=== PATIENT | female | born 1945 | race Caucasian/White ===

== ENCOUNTER → 2017-04-25 | Outpatient (CLI) | payer MEDICARE, BC, OTHER ==
[~2017-04-25] MED LIST: IOHEXOL 240 MG/ML 50ML VIAL. ONE; IOHEXOL 300 MG/ML 75 ML VIAL. IV ONE; LOSA1TAB25 PO; MELO7.5T29 PO
[2017-04-25 15:01] LABS: CREATININE 1.1 mg/dL (0.6-1.0); GFR 48.8
--- NOTE | 2017-04-25 16:14 | RAD ---
EXAM: CT abdomen/pelvis with contrast. HISTORY: Malignant neoplasm of endometrium/vagina. Abnormality on rectal exam. TECHNIQUE: Computed tomography of the abdomen and pelvis was performed after the intravenous administration of 75 mL Omnipaque 300. COMPARISON: 09/13/2014.. FINDINGS: Lung windows through the visualized portions of the bases reveal mild atelectasis. Bone windows reveal no suspicious lesions. There are bilateral total hip arthroplasties. These result in streak artifact that obscures the pelvis. There is a low-density mass along the right aspect of the cul-de-sac that measures 3.1 x 3.0 cm, are seen obscured by artifact. This appears to be stable chronically. There is mild stranding in the presacral space which may indicate edema or post treatment change. The uterus and ovaries are surgically absent. There is an anastomotic suture line along the rectosigmoid junction. There is no gross ascites. There are no pathologically enlarged lymph nodes. A small hernia to the right of the umbilicus contains a nonobstructed loop of small bowel. A small hypoattenuating focus within hepatic segment 2 is unchanged chronically and likely benign cyst or hemangioma. The spleen, gallbladder, kidneys, pancreas and adrenal glands are unremarkable. IMPRESSION: 1. A 3 cm low-density mass along the right aspect of the cul-de-sac may represent the right ovary possibly a seroma. It appears to been stable chronically and benignity is favored. However, perirectal stranding is new suggesting inflammation. Visualization is limited given metallic artifact from the patient's hip arthroplasties. Sonography could further assess for masses and there is persistent concern. 2. A small right periumbilical hernia contains a nonobstructed loop of small bowel. *One or more of the following individualized dose reduction techniques were utilized for this examination: 1. Automated exposure control. 2. Adjustment of the mA and/or kV according to patient size. 3. Use of iterative reconstruction technique.
== END | disposition home or self-care (01) ==
LOC: CT 14:31
PROVIDERS: ATTEND Obstetrics & Gynecology Gynecologic Oncology
DX: C52 Malignant neoplasm of vagina (principal); C54.1 Malignant neoplasm of endometrium; C54.9 Malignant neoplasm of corpus uteri, unspecified; J98.11 Atelectasis; K42.9 Umbilical hernia without obstruction or gangrene; Z90.710 Acquired absence of both cervix and uterus
CPT/HCPCS: 36415; 74177; 82565; Q9966; Q9967

== ENCOUNTER → 2019-08-07 | Outpatient (CLI) | payer MEDICARE, BC, OTHER ==
[2019-08-07 11:52] LABS: BASO % 1 % (0-3); EOS # 0.1 x10^3/uL (0.0-0.7); EOS % 2 % (0-3); HEMATOCRIT 33.8 % (36.0-47.0); HEMOGLOBIN 11.3 g/dL (12.0-15.5); LYMPH # 0.7 x10^3/uL (1.0-4.8); LYMPH % 11 % (24-48); MEAN CORPUSCULAR HEMOGLOBIN 31 pg (25-35); MEAN CORPUSCULAR HGB CONC 33 g/dL (31-37); MEAN CORPUSCULAR VOLUME 94 fL (79-100); MONO # 0.6 x10^3/uL (0.0-1.1); MONO % 9 % (0-9); NEUT # 4.9 x10^3uL (1.8-7.7); NEUT % 78 % (31-73); PLATELET COUNT 309 x10^3/uL (140-400); RED BLOOD COUNT 3.62 x10^6/uL (3.50-5.40); RED CELL DISTRIBUTION WIDTH 14.3 % (11.5-14.5); WHITE BLOOD COUNT 6.3 x10^3/uL (4.0-11.0)
[2019-08-07 12:00] LABS: ALBUMIN/GLOBULIN RATIO 0.7 (1.0-1.7); CALCIUM 8.9 mg/dL (8.5-10.1); CREATININE 1.5 mg/dL (0.6-1.0); GFR 33.9; POTASSIUM 3.9 mmol/L (3.5-5.1); TOTAL BILIRUBIN 0.5 mg/dL (0.2-1.0); TOTAL PROTEIN 7.4 g/dL (6.4-8.2)
[2019-08-07 13:08] LABS: SEDIMENTATION RATE 88 (0-25)
--- NOTE | 2019-08-07 13:35 | RAD ---
CT Abdomen and Pelvis without contrast History: Abdominal pain Technique: Noncontrast CT imaging was performed of the abdomen and pelvis. Oral contrast was given. Multiplanar images are reviewed. Exposure: One or more of the following individualized dose reduction techniques were utilized for this examination: 1. Automated exposure control 2. Adjustment of the mA and/or kV according to patient size 3. Use of iterative reconstruction technique. Comparison: April 25, 2017 Findings: There is now moderate to severe right hydronephrosis and moderate right hydroureter, hydroureter extending into the pelvis although the region of ureterovesical junctions is completely obscured from artifact created by bilateral hip arthroplasties. There are some foci of dependent hyperdensity in the dilated right renal calyces, probably more defined calculus inferiorly about 1.1 cm. There is no left hydronephrosis or renal calculus. Gallbladder is present without obvious intraluminal abnormality by CT. Accurate evaluation of the abdominal visceral organs is limited without intravenous contrast. Small hypodense lesion of the lateral left lobe of the liver about 0.7 cm is similar, otherwise difficult characterize given small size. There is no adrenal nodularity. There is no new obvious abnormality of the partially fat replaced pancreas or of the spleen. There is no abnormality of the limited visualized lung bases. There is no free fluid or free air. There is no evidence of small bowel obstruction as oral contrast is seen to the level of the sigmoid colon. Appendix is not clearly identified if still present. There is no significant bowel dilatation. There is multilevel advanced thoracolumbar degenerative disc disease also multilevel facet degenerative change and spondylosis. There is degree of lateral recess stenosis bilaterally at L2-3. There is multilevel thoracolumbar neural foramina compromise. Impression: 1. There is moderate to severe right hydronephrosis and moderate right hydroureter. Region of the ureterovesical junctions is completely obscured by artifact created by bilateral hip arthroplasties, cannot evaluate for etiology of obstruction. There is some dependent hyperdensity in the right renal calyces which could be a component of a small stones or milk of calcium, likely more defined right renal calculus inferiorly. 2. There is no evidence of small bowel obstruction as there is oral contrast to the level of the sigmoid colon. 3. There is multilevel thoracolumbar degenerative disc disease, spondylosis, facet degenerative change, and neural foramina compromise. Electronically signed by: Pardeep Alexis MD (08/07/2019 1:32 PM) [id number]
== END | disposition home or self-care (01) ==
LOC: CT 10:43
PROVIDERS: ATTEND Physician Assistant Medical
DX: N13.30 Unspecified hydronephrosis (principal); K76.9 Liver disease, unspecified; M51.34 Other intervertebral disc degeneration, thoracic region; M47.814 Spondylosis without myelopathy or radiculopathy, thoracic region; M48.061 Spinal stenosis, lumbar region without neurogenic claudication; I10 Essential (primary) hypertension
CPT/HCPCS: 36415; 74176; 80053; 85025; 85651

== ENCOUNTER → 2019-11-17 | Outpatient (CLI) | payer MEDICARE, BC, OTHER ==
[~2019-11-17] MED LIST changes: +IOHEXOL 240 MG/ML 50ML VIAL. PO ONE
[2019-11-17 08:39] LABS: CREATININE 1.6 mg/dL (0.6-1.0); GFR 31.4
--- NOTE | 2019-11-17 11:24 | RAD ---
CT ABD PELV W/ORAL IV CONTRAST Indication: Abnormal colonoscopy at the rectum. Diarrhea. History of hysterectomy, appendectomy and prior temporary colostomy. Exposure: One or more of the following individualized dose reduction techniques were utilized for this examination: 1. Automated exposure control 2. Adjustment of the mA and/or kV according to patient size 3. Use of iterative reconstruction technique. Technique: Intravenous contrast was given. Oral contrast was given. Comparison: 08/07/2019. FINDINGS: Lung bases are clear. Heart size remains mildly enlarged. Small hypodense lesion in the left lobe of the liver measures 1 cm, better defined on today's exam due to contrast technique but appears stable since even earlier study of 04/25/2017. Spleen is not enlarged. Pancreas appears unremarkable. No evidence of adrenal mass. Moderate to severe right hydronephrosis is again seen, the right ureter is also dilated to the pelvis although the distal ureters are obscured by artifact from hip replacements. Cannot exclude distal right ureteric calculus. No evidence of left hydronephrosis. Slightly delayed enhancement of the right kidney as compared with the left. Dependent hyperdensity in right renal calyces are again identified and possible right renal calculus. No calcified gallstone. The aorta is mildly calcified and is tortuous. No evidence of pathologic lymph node enlargement. Stomach is not distended. No evidence of bowel obstruction, oral contrast reaches the proximal colon. Mild colonic diverticulosis. No evidence of acute colitis or diverticulitis. Homogeneous density within the rectum, could be due to a rectal mass or circumferential wall thickening, appears similar to the prior study although evaluation is limited due to artifact from the hip replacement. Mild stranding within the perirectal fat, also similar to the prior study. There is anastomotic suture in the rectosigmoid region. No evidence of pneumoperitoneum. No significant ascites. Urinary bladder is not well seen. Vertebral body height is maintained. Severe multilevel degenerative spondylosis with stenosis. IMPRESSION: 1. Image degradation of the pelvis due to artifact from hip replacements. 2. Homogeneous rectal density may be due to wall thickening, or rectal mass. Note the appearance is roughly similar to the prior scan from August 07, 2019, given constraints of the exam. 3. Moderate to severe right hydronephroureter is again seen, with slightly delayed right renal enhancement. Findings suggest distal obstruction although the distal ureter cannot be evaluated due to artifact from hip replacements. Electronically signed by: Monroe Taveras MD (11/17/2019 11:20 AM) [id number]
== END | disposition home or self-care (01) ==
LOC: CT 08:08
PROVIDERS: ATTEND Internal Medicine Gastroenterology
DX: K57.30 Diverticulosis of large intestine without perforation or abscess without bleeding (principal); N13.30 Unspecified hydronephrosis; I51.7 Cardiomegaly; K76.9 Liver disease, unspecified; M47.819 Spondylosis without myelopathy or radiculopathy, site unspecified; I70.0 Atherosclerosis of aorta; Q25.46 Tortuous aortic arch
CPT/HCPCS: 36415; 74177; 82565; 84520; Q9966; Q9967

== ENCOUNTER 2019-12-02 15:28 | Emergency (ER) | payer MEDICARE, BC, OTHER ==
[~2019-12-02] VITALS: Ht 172.7 cm; Wt 91.1 kg
[~2019-12-02 15:28] MED LIST changes: -IOHEXOL 240 MG/ML 50ML VIAL. ONE; -IOHEXOL 240 MG/ML 50ML VIAL. PO ONE; -IOHEXOL 300 MG/ML 75 ML VIAL. IV ONE
[2019-12-02 15:45] VITALS: BP 127/54
[2019-12-02] MEDS ORDERED: IV NORMAL SALINE 1,000ML 1,000 ML IV ONE (16:15)
--- NOTE | 2019-12-02 16:28 | RAD ---
PORTABLE CHEST 1V Clinical History: Syncope Technique: AP view of the chest was obtained at 12/02/2019 4:05 PM. Comparison: November 03, 2010. Findings: The cardiomediastinal silhouette is normal. The pulmonary vasculature is normal. The lungs and pleural margins are clear. There has been interval placement of a left Port-A-Cath and bilateral shoulder total arthroplasty. Impression: No evidence of an acute cardiopulmonary process. Electronically signed by: Magdaleno Mrash III, MD (12/02/2019 4:25 PM) [id number]
[2019-12-02 16:29] LABS: CALCIUM 8.6 mg/dL (8.5-10.1); CREATININE 2.2 mg/dL (0.6-1.0); GFR 21.8; POTASSIUM 3.7 mmol/L (3.5-5.1)
[2019-12-02 16:31] LABS: BASO % 1 % (0-3); EOS # 0.2 x10^3/uL (0.0-0.7); EOS % 3 % (0-3); HEMATOCRIT 32.6 % (36.0-47.0); HEMOGLOBIN 10.7 g/dL (12.0-15.5); LYMPH # 0.5 x10^3/uL (1.0-4.8); LYMPH % 7 % (24-48); MEAN CORPUSCULAR HEMOGLOBIN 31 pg (25-35); MEAN CORPUSCULAR HGB CONC 33 g/dL (31-37); MEAN CORPUSCULAR VOLUME 94 fL (79-100); MONO # 0.8 x10^3/uL (0.0-1.1); MONO % 12 % (0-9); NEUT # 5.4 x10^3uL (1.8-7.7); NEUT % 79 % (31-73); PLATELET COUNT 227 x10^3/uL (140-400); RED BLOOD COUNT 3.48 x10^6/uL (3.50-5.40); RED CELL DISTRIBUTION WIDTH 14.8 % (11.5-14.5); WHITE BLOOD COUNT 6.9 x10^3/uL (4.0-11.0)
[2019-12-02 16:35] LABS: ALBUMIN 2.8 g/dL (3.4-5.0); ALBUMIN/GLOBULIN RATIO 0.7 (1.0-1.7); TOTAL BILIRUBIN 0.2 mg/dL (0.2-1.0); TOTAL PROTEIN 6.6 g/dL (6.4-8.2)
--- NOTE | 2019-12-02 16:45 | RAD ---
CT scan of the head without contrast 12/02/2019 Clinical History: Syncope, head injury. Right frontal hematoma. Technique: Unenhanced, contiguous, 5 mm axial sections were obtained through the head. One or more of the following individualized dose reduction techniques were utilized for this study: 1. Automated exposure control. 2. Adjustment of the mA and/or kV according to patient size. 3. Use of iterative reconstruction technique. Findings: There is generalized parenchymal atrophy. Areas of decreased attenuation are seen within the periventricular and subcortical white matter of both cerebral hemispheres consistent with areas of small vessel ischemic disease. No acute parenchymal abnormality is seen. No extra-axial fluid collection is noted. No skull fracture is seen. Soft tissue swelling seen involving the right frontal scalp. Impression: No acute intracranial abnormality is seen. Electronically signed by: Jarad Thackre MD (12/02/2019 4:43 PM) [id number]
--- NOTE | 2019-12-02 17:08 | PHYS DOC ---
Past History Past Medical History: Anxiety, Arthritis, Cancer, Depression, Hypertension Past Surgical History: Appendectomy, Colectomy, Hip Replacement Alcohol Use: None Adult General Chief Complaint Chief Complaint: SYNCOPE HPI HPI Patient is a 74 female year old sex who presents to the emergency department for evaluation of possible syncope. The patient states that she had an episode while using the toilet. She states that she had a large watery bowel movement. She started to feel lightheaded which resulted in her passing out. She states that she fell forward off the toilet and hit her head on the wall. States that this time she feels better. Notes that this took place proximately 2 hours prior to arrival. She states that her urged her to come and be checked out in the emergency department. She states that this time she is not experienc ing any dizziness or lightheadedness. She does note that she has had history of ongoing diarrhea issues since having a colonoscopy performed by her senior budget analyst within the past 3 weeks. Notes his stools have been watery. Has not been having any fevers or abdominal pain associated with symptoms. Does note that she has been trying to drink fluids to stay hydrated. She denied any associated chest pain or shortness of breath with this episode. Review of Systems Review of Systems Constitutional: Denies fever or chills [] Eyes: Denies change in visual acuity, redness, or eye pain [] HENT: Denies nasal congestion or sore throat [] Respiratory: Denies cough or shortness of breath [] Cardiovascular: Syncope, denies chest pain or edema [] GI: Diarrhea, denies abdominal pain, nausea, vomiting [] : Denies dysuria or hematuria [] Musculoskeletal: Denies back pain or joint pain [] Integument: Denies rash or skin lesions [] Neurologic: Denies headache, focal weakness or sensory changes [] All other systems were reviewed and found to be within normal limits, except as documented in this note. Current Medications Current Medications Current Medications Medications (Trade) Dose Ordered Sig/Drea Start Time Stop Time Status Last Admin Dose Admin Sodium Chloride 1,000 ml @ 1,000 mls/hr 1X ONCE 12/02/19 16:15 12/02/19 17:14 12/02/19 16:21 1,000 MLS/HR Allergies Allergies Allergies Coded Allergies Type Severity Reaction Last Updated Verified No Known Drug Allergies 09/13/14 No Physical Exam Physical Exam Constitutional: Well developed, well nourished, no acute distress, non-toxic appearance. [] HENT: Normocephalic, 3.5 cm right frontal scalp hematoma, bilateral external ears normal, oropharynx moist, no oral exudates, nose normal. [] Eyes: PERRLA, EOMI, conjunctiva normal, no discharge. [] Neck: Normal range of motion, no tenderness, supple, no stridor. [] Cardiovascular:Heart rate regular rhythm, no murmur [] Lungs & Thorax: Bilateral breath sounds clear to auscultation [] Abdomen: Bowel sounds normal, soft, no tenderness, no masses, no pulsatile masses. [] Skin: Warm, dry, no erythema, no rash. [] Back: No tenderness, no CVA tenderness. [] Extremities: No tenderness, no cyanosis, no clubbing, ROM intact, no edema. [] Neurologic: Alert and oriented X 3, normal motor function, normal sensory function, no focal deficits noted. [] Current Patient Data Vital Signs Vital Signs Date Time Temp Pulse Resp B/P (MAP) Pulse Ox O2 Delivery O2 Flow Rate FiO2 12/02/19 15:45 98.0 63 18 127/54 (78) 96 Room Air Lab Results Laboratory Tests Test 12/02/19 15:54 White Blood Count 6.9 x10^3/uL (4.0-11.0) Red Blood Count 3.48 x10^6/uL (3.50-5.40) L Hemoglobin 10.7 g/dL (12.0-15.5) L Hematocrit 32.6 % (36.0-47.0) L Mean Corpuscular Volume 94 fL (79-100) Mean Corpuscular Hemoglobin 31 pg (25-35) Mean Corpuscular Hemoglobin Concent 33 g/dL (31-37) Red Cell Distribution Width 14.8 % (11.5-14.5) H Platelet Count 227 x10^3/uL (140-400) Neutrophils (%) (Auto) 79 % (31-73) H Lymphocytes (%) (Auto) 7 % (24-48) L Monocytes (%) (Auto) 12 % (0-9) H Eosinophils (%) (Auto) 3 % (0-3) Basophils (%) (Auto) 1 % (0-3) Neutrophils # (Auto) 5.4 x10^3uL (1.8-7.7) Lymphocytes # (Auto) 0.5 x10^3/uL (1.0-4.8) L Monocytes # (Auto) 0.8 x10^3/uL (0.0-1.1) Eosinophils # (Auto) 0.2 x10^3/uL (0.0-0.7) Basophils # (Auto) 0.0 x10^3/uL (0.0-0.2) Sodium Level 139 mmol/L (136-145) Potassium Level 3.7 mmol/L (3.5-5.1) Chloride Level 102 mmol/L (98-107) Carbon Dioxide Level 28 mmol/L (21-32) Anion Gap 9 (6-14) Blood Urea Nitrogen 36 mg/dL (7-20) H Creatinine 2.2 mg/dL (0.6-1.0) H Estimated GFR (Cockcroft-Gault) 21.8 BUN/Creatinine Ratio 16 (6-20) Glucose Level 107 mg/dL (70-99) H Calcium Level 8.6 mg/dL (8.5-10.1) Magnesium Level 2.0 mg/dL (1.8-2.4) Total Bilirubin 0.2 mg/dL (0.2-1.0) Aspartate Amino Transferase (AST) 16 U/L (15-37) Alanine Aminotransferase (ALT) 14 U/L (14-59) Alkaline Phosphatase 72 U/L (46-116) Total Protein 6.6 g/dL (6.4-8.2) Albumin 2.8 g/dL (3.4-5.0) L Albumin/Globulin Ratio 0.7 (1.0-1.7) L EKG EKG Interpreted by me: Heart rate 66, sinus rhythm, normal intervals, normal axis, no acute ST/T wave abnormalities present [] Radiology/Procedures Radiology/Procedures [address] [address] IMAGING REPORT Signed PATIENT: CHELO MONSALVE RACCOUNT: [id number] : 1945 LOCATION: ER AGE: 74 SEX: F EXAM STATUS: REG ER ORD. PHYSICIAN: BABAK ORR MD REASON: Syncope PROCEDURE: PORTABLE CHEST 1V PORTABLE CHEST 1V Clinical History: Syncope Technique: AP view of the chest was obtained at 12/02/2019 4:05 PM. Comparison: November 03, 2010. Findings: The cardiomediastinal silhouette is normal. The pulmonary vasculature is normal. The lungs and pleural margins are clear. There has been interval placement of a left Port-A-Cath and bilateral shoulder total arthroplasty. Impression: No evidence of an acute cardiopulmonary process. Electronically signed by: Jaguar Harp III, MD (12/02/2019 4:25 PM) [id number] DICTATED AND SIGNED BY: JAGUAR HARP III, MD DATE: 12/02/19 1623 CC: BABAK ORR MD; ARABELLA [place]ZO PA ~ [place] [address] IMAGING REPORT Signed PATIENT: CHELO MONSALVE RACCOUNT: [id number] : 1945 LOCATION: ER AGE: 74 SEX: F EXAM STATUS: REG ER ORD. PHYSICIAN: BABAK ORR MD REASON: syncope, head injury, right frontal hematoma PROCEDURE: CT HEAD WO CONTRAST CT scan of the head without contrast 12/02/2019 Clinical History: Syncope, head injury. Right frontal hematoma. Technique: Unenhanced, contiguous, 5 mm axial sections were obtained through the head. One or more of the following individualized dose reduction techniques were utilized for this study: 1. Automated exposure control. 2. Adjustment of the mA and/or kV according to patient size. 3. Use of iterative reconstruction technique. Findings: There is generalized parenchymal atrophy. Areas of decreased attenuation are seen within the periventricular and subcortical white matter of both cerebral hemispheres consistent with areas of small vessel ischemic disease. No acute parenchymal abnormality is seen. No extra-axial fluid collection is noted. No skull fracture is seen. Soft tissue swelling seen involving the right frontal scalp. Impression: No acute intracranial abnormality is seen. Electronically signed by: aJrad Thacker MD (12/02/2019 4:43 PM) [id number] DICTATED AND SIGNED BY: JARAD THACKER MD DATE: 12/02/19 1643 CC: BABAK ORR MD; ARABELLA RAZO ~ [] Course & Med Decision Making Course & Med Decision Making Pertinent Labs and Imaging studies reviewed. (See chart for details) The patient appears well at this time. The patient was started on IV fluids. Given that symptoms came on after bearing down to have a large bowel movement, I do suspect that the syncopal episode was due to a vasovagal episode. Patient's blood work did show elevation in BUN and creatinine compared to baseline. After IV fluids were given, the patient states that she is feeling well and would like to go home. I advised that the patient follow-up with her primary doctor in the next 3 days and recommended that she have a repeat basic metabolic panel redrawn to recheck her BUN and creatinine. Advised to continue oral hydration at home. Recommended return to the emergency department for any wors ening symptoms. Patient voiced understanding and agreement with treatment plan. [] Dragon Disclaimer Dragon Disclaimer This electronic medical record was generated, in whole or in part, using a voice recognition dictation system. Departure Departure: Impression: Primary Impression: Vasovagal episode Additional Impressions: Dehydration Hematoma of frontal scalp Closed head injury Disposition: HOME, SELF-CARE Condition: STABLE Referrals: ARABELLA RAZO (PCP) Patient Instructions: Dehydration, Adult, Scalp Hematoma, Syncope Additional Instructions: Your blood work showed abnormalities in regards to your kidney function. Your BUN and creatinine levels were found to be elevated. It is recommended that you notify your primary care provider of this as you will need to have a repeat basic metabolic panel to recheck your BUN and creatinine levels. Follow-up with your primary care provider in 3 days for reevaluation. Return to the emergency department for any worsening symptoms. Problem Qualifiers Additional Impressions: Hematoma of frontal scalp Encounter type: initial encounter Qualified Codes: S00.03XA - Contusion of scalp, initial encounter Closed head injury Encounter type: initial encounter Qualified Codes: S09.90XA - Unspecified injury of head, initial encounter BABAK ORR MD December 02, 2019 17:08
--- NOTE | 2019-12-02 17:25 | EKG ---
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
== END 2019-12-02 17:25 | disposition home or self-care (01) ==
LOC: ER 15:28
DX: S00.03XA Contusion of scalp, initial encounter (principal); R42 Dizziness and giddiness; R19.7 Diarrhea, unspecified; R55 Syncope and collapse; E86.0 Dehydration; F41.9 Anxiety disorder, unspecified; M19.90 Unspecified osteoarthritis, unspecified site; F32.9 Major depressive disorder, single episode, unspecified; I10 Essential (primary) hypertension; Z90.89 Acquired absence of other organs; Z98.890 Other specified postprocedural states; Z85.9 Personal history of malignant neoplasm, unspecified; W18.09XA Striking against other object with subsequent fall, initial encounter; Y93.89 Activity, other specified; Y92.89 Other specified places as the place of occurrence of the external cause; Y99.8 Other external cause status
CPT/HCPCS: 36415; 70450; 71045; 80053; 83735; 85025; 93005; 96360; 99285; J7030

== ENCOUNTER 2020-07-08 13:27 | Emergency (ER) | payer MEDICARE, BC, OTHER ==
[~2020-07-08] VITALS: Ht 152.4 cm; Wt 90.9 kg
[2020-07-08] MEDS ORDERED: LIDOCAINE 1%/EPI 1:100,000 20 ML VIAL. IJ ONE (14:45)
[2020-07-08 15:20] VITALS: BP 116/90
--- NOTE | 2020-07-08 17:20 | PHYS DOC ---
Past History Past Medical History: Arthritis, Depression, Hypertension Past Surgical History: Hip Replacement, Hysterectomy, Other Additional Past Surgical Histo: BILAT SHOULDER REPLACEMENTS, COLOSTOMY AND REVERSAL, NEPHROSTOMY TUBES Alcohol Use: None General Adult EDM: Chief Complaint: LACERATION/AVULSION HPI: HPI: Patient is a 75-year-old female who presents to the emergency department with complaints of a laceration to the lateral right lower extremity. Patient states she was up on a step stool when she slipped and fell and cut her leg in the process. She denies any head injury or loss of consciousness from the fall. Patient states she only fell down one step. She reports her last tetanus shot was less than 5 years ago. The patient denies any numbness, tingling, or weakness of the lower extremity. She denies any pain at this time. Review of Systems: Review of Systems: Complete ROS is negative unless otherwise noted in HPI. Current Medications: Current Meds: Current Medications Medications (Trade) Dose Ordered Sig/Drea Start Time Stop Time Status Last Admin Dose Admin Lidocaine/ Epinephrine (Xylocaine 1%-Epi 1:100,000) 20 ml 1X ONCE 07/08/20 14:45 07/08/20 14:46 DC 07/08/20 15:12 20 ML Allergies: Allergies: Allergies Coded Allergies Type Severity Reaction Last Updated Verified No Known Drug Allergies 09/13/14 No Physical Exam: PE: See Above Constitutional: Well developed, well nourished, no acute distress, non-toxic appearance. [] HENT: Normocephalic, atraumatic, bilateral external ears normal, nose normal. [] Eyes: PERRLA, EOMI, conjunctiva normal, no discharge. [] Neck: Normal range of motion, no stridor. [] Cardiovascular:Heart rate regular rhythm Lungs & Thorax: Respirations even and unlabored, no retractions, no respiratory distress Skin: Warm, dry, no erythema, no rash: 14 cm stellate/ flap laceration to the lateral right lower extremity no active bleeding. [] Extremities: RLE: No bony tenderness, no cyanosis, ROM intact, no edema. [] Neurologic: Alert and oriented X 3, no focal deficits noted. [] Psychologic: Affect normal, judgement normal, mood normal. [] Current Patient Data: Vital Signs: Vital Signs Date Time Temp Pulse Resp B/P (MAP) Pulse Ox O2 Delivery O2 Flow Rate FiO2 07/08/20 15:20 59 18 116/90 (99) 93 07/08/20 14:13 97.6 Room Air EKG: EKG: [] Radiology/Procedures: Radiology/Procedures: Laceration Repair by me: Anesthesia: 1% lidocaine with epinephrine locally Location: Right lateral lower leg Tendon/Joint/Nerves: No injury Foreign body: None detected after copious irrigation and exploration with NS and Evelyn-Hex Technique: 26 simple Interrupted Sutures with 4-0 Ethilon Complexity: No subcutaneous sutures/mucosal repair/edge excision Post Closure Length: 14 cm stellate shape Patient's bleeding was easily controlled in the department and there is no indication of anemia. No evidence of compartment syndrome, neurologic injury, vascular injury, open joint, tendon laceration, or foreign body. Patient is appropriate for outpatient follow up. 4 [] Heart Score: Risk Factors: Risk Factors: DM, Current or recent (<one month) smoker, HTN, HLP, family hist ory of CAD, obesity. Risk Scores: Score 0 - 3: 2.5% MACE over next 6 weeks - Discharge Home Score 4 - 6: 20.3% MACE over next 6 weeks - Admit for Clinical Observation Score 7 - 10: 72.7% MACE over next 6 weeks - Early Invasive Strategies Course & Med Decision Making: Course & Med Decision Making Pertinent Labs and Imaging studies reviewed. (See chart for details) [] Dragon Disclaimer: Dragon Disclaimer: This electronic medical record was generated, in whole or in part, using a voice recognition dictation system. Departure Departure: Impression: Primary Impression: Laceration of right lower leg without complication Qualified Codes: S81.811A - Laceration without foreign body, right lower leg, initial encounter Disposition: 01 DC HOME SELF CARE/HOMELESS Condition: STABLE Referrals: ARABELLA RAZO (PCP) Patient Instructions: Laceration Care, Adult, [id number] Additional Instructions: Keep the area clean and dry. You may take Tylenol or ibuprofen as needed for pa in. Keep the dressing that was placed today on for 24 hours then change the dressing twice a day and as needed. Follow-up with your primary care doctor, or return to the emergency room in 14 days to have the sutures removed, sooner if you develop signs of infection including: redness, warmth, drainage, or a fever. Thank you for choosing [facility] for your care today! NELL YOUNG APRN Jul 08, 2020 17:20
== END 2020-07-08 17:30 | disposition home or self-care (01) ==
LOC: ER 13:27
DX: S81.811A Laceration without foreign body, right lower leg, initial encounter (principal); M19.90 Unspecified osteoarthritis, unspecified site; I10 Essential (primary) hypertension; W01.198A Fall on same level from slipping, tripping and stumbling with subsequent striking against other object, initial encounter; Y93.89 Activity, other specified; Y92.89 Other specified places as the place of occurrence of the external cause; Y99.8 Other external cause status
CPT/HCPCS: 12005; 99282

== ENCOUNTER 2020-10-12 08:34 | Emergency (ER) | payer MEDICARE, BC, OTHER ==
[~2020-10-12] VITALS: Ht 152.4 cm; Wt 95.1 kg
[2020-10-12 08:42] VITALS: BP 127/71
--- NOTE | 2020-10-12 08:47 | PHYS DOC ---
Past History Past Medical History: Arthritis, Depression, Hypertension Past Surgical History: Hip Replacement, Hysterectomy, Other Additional Past Surgical Histo: BILAT SHOULDER REPLACEMENTS, COLOSTOMY AND REVERSAL, NEPHROSTOMY TUBES Alcohol Use: None General Adult EDM: Chief Complaint: ABDOMINAL PAIN HPI: HPI: Patient is a 75-year-old female brought in by EMS for low abdominal pain. States she was having pain since last night, has been constipated and took a laxative and had 2 large bowel movements. Patient states the pain is gone now she does not want to be evaluated and that she is here because of the insistence of her and son. Patient has a history of bilateral nephrostomy tubes placed at [facility]. She has had a small increase in the amount of blood output from the tubes. Review of Systems: Review of Systems: All other systems within normal limits except for as noted in the HPI Allergies: Allergies: Allergies Coded Allergies Type Severity Reaction Last Updated Verified No Known Drug Allergies 09/13/14 No Physical Exam: PE: Constitutional: Well developed, well nourished, no acute distress, non-toxic appearance. [] HENT: Normocephalic, atraumatic, bilateral external ears normal, nose normal. [] Eyes: PERRLA, conjunctiva normal, no discharge. [] Neck: No rigidity, supple, no stridor. [] Cardiovascular: Regular rate and rhythm, brisk cap refill [] Lungs & Thorax: Non labored symmetric respirations, no tachypnea or respiratory distress [] Abdomen: Soft, nondistended, tenderness and guarding in lower abdomen (patient states that her baseline). Skin: Warm, dry, no erythema, no rash. [] Back: Unremarkable, bilateral nephrostomy tubes Extremities: No deformities, range of motion grossly intact, no lower extremity edema [] Neurologic: Alert and oriented X 3, no focal deficits noted. [] Psychologic: Affect normal, judgement normal, mood normal. [] EKG: EKG: [] Radiology/Procedures: Radiology/Procedures: [] Heart Score: C/O Chest Pain: N/A Risk Factors: Risk Factors: DM, Current or recent (<one month) smoker, HTN, HLP, family history of CAD, obesity. Risk Scores: Score 0 - 3: 2.5% MACE over next 6 weeks - Discharge Home Score 4 - 6: 20.3% MACE over next 6 weeks - Admit for Clinical Observation Score 7 - 10: 72.7% MACE over next 6 weeks - Early Invasive Strategies Course & Med Decision Making: Course & Med Decision Making Patient states she does not want evaluation or work-up. States she just had a CT scan 2 days ago at [facility]. Patient declining any work-up or evaluation, discussed checking vital signs and her elevated temperature but patient is refusing any further diagnostic evaluation. Signed AMA paperwork Dragon Disclaimer: Wilfredo Disclaimer: This electronic medical record was generated, in whole or in part, using a voice recognition dictation system. Departure Departure: Impression: Primary Impression: Left against medical advice Disposition: 07 AMA/ELOPED/LWBS Condition: GUARDED Referrals: ARABELLA RAZO (PCP) ARGELIA ANDERSON MD Oct 12, 2020 08:47
== END 2020-10-12 09:05 | disposition left against medical advice (07) ==
LOC: ER 08:34
DX: R10.30 Lower abdominal pain, unspecified (principal); K59.00 Constipation, unspecified; M19.90 Unspecified osteoarthritis, unspecified site; F32.9 Major depressive disorder, single episode, unspecified; I10 Essential (primary) hypertension; Z90.710 Acquired absence of both cervix and uterus; Z93.3 Colostomy status; Z93.6 Other artificial openings of urinary tract status
CPT/HCPCS: 99283

== ENCOUNTER → 2020-10-19 | Outpatient (CLI) | payer MEDICARE, BC, OTHER ==
[2020-10-12 08:42] VITALS: BP 127/71
[2020-10-19 11:53] LABS: CALCIUM 8.9 mg/dL (8.5-10.1); CREATININE 2.7 mg/dL (0.6-1.0); GFR 17.1; POTASSIUM 4.2 mmol/L (3.5-5.1)
== END ==
LOC: LAB 10:35
PROVIDERS: ATTEND Physician Assistant
DX: R79.89 Other specified abnormal findings of blood chemistry (principal); N28.9 Disorder of kidney and ureter, unspecified
CPT/HCPCS: 36415; 80048

== ENCOUNTER → 2020-12-02 | Outpatient (CLI) | payer MEDICARE, BC, OTHER ==
--- NOTE | 2020-12-02 15:33 | RAD ---
US DPLX VENOUS EXTREMITY UPPER RT History: Reason: ARM PAIN / Spl. Instructions: / History: Comparison: None. Procedure: Color flow Doppler, Doppler spectral analysis, and 2D images are obtained with and without compression in the jugular vein, subclavian vein, axillary vein, brachial vein, radial vein, ulnar v ein, and basilic and cephalic veins. Findings: There is normal color flow, augmentation, and compressibility of all visualized vein segments. No lima dence of deep venous thrombus is present. IMPRESSION: 1. No evidence of right upper extremity deep venous thrombosis. Electronically signed by: Robinson Carlos DO (12/02/2020 3:31 PM) [id number]
--- NOTE | 2020-12-02 15:42 | RAD ---
AP and lateral views the right forearm no comparison. INDICATION: Right arm pain. FINDINGS: No fracture subluxation dislocation. No significant soft tissue swelling. Electronically signed by: Stanley Ayoub MD (12/02/2020 3:40 PM) [id number]
== END ==
LOC: US 14:45
PROVIDERS: ATTEND Physician Assistant
DX: M79.601 Pain in right arm (principal)
CPT/HCPCS: 73090; 93971

== ENCOUNTER 2020-12-03 07:34 | Emergency (ER) | payer MEDICARE, BC, OTHER ==
[~2020-12-03] VITALS: Ht 152.4 cm; Wt 95.1 kg
[2020-12-03 08:03] VITALS: BP 120/78
--- NOTE | 2020-12-03 08:09 | RAD ---
CT head without contrast: Reason for examination: Head trauma. Comparison is made to previous study dated 12/02/2019. Helical images were obtained through the brain. No contrast was administered. Ventricular systems are symmetric and not abnormally dilated. No midline shift is seen. There is gene ralized parenchymal atrophy which is consistent with the patient's age. There is no evidence of intra cranial hemorrhage, acute infarct, mass or edema. There are some patchy deep white matter changes in the frontal and parietal lobes bilaterally consistent with microvascular ischemic changes which are s table. No abnormalities of seen at the orbits. The paranasal sinuses and mastoid air cells are clear. No acute abnormality seen in the skull. IMPRESSION: No acute intracranial abnormality evident. Cerebral atrophy with microvascular ischemic changes in the frontal and parietal lobes. CT cervical spine without contrast: Helical images were obtained through the cervical spine from the skull base through the thoracic apic es. No contrast was administered. Reconstruction was performed in sagittal and coronal planes. The C1 ring is intact. The odontoid process is intact and normally centered between the lateral amari s of C1. The vertebral bodies of the cervical spine show a 2 mm anterolisthesis of C3 on C4. Remainin g vertebral bodies are normally aligned anteriorly and posteriorly. No acute fracture is seen. [employer] ior elements are intact. There is severe degenerative disc disease at the C3-4, C5-6 and C6 disc leve ls. No site of significant spinal stenosis is evident. Prevertebral soft tissues are normal. IMPRESSION: Degenerative spondylosis with a 2 mm grade 1 anterolisthesis of C3 on C4 and severe degenerative disc disease at the C3-4, C5-6 and C6-7 levels. No significant spinal stenosis evident. Exposure: One or more of the following individualized dose reduction techniques were utilized for thi s examination: 1. Automated exposure control 2. Adjustment of the mA and/or kV according to patient size 3. Use of iterative reconstruction technique. Electronically signed by: Tracy Dennis MD (12/03/2020 8:07 AM) STEPHEN
--- NOTE | 2020-12-03 08:10 | PHYS DOC ---
Past History Past Medical History: Arthritis, Cancer, Depression, Hypertension Past Surgical History: Cancer Surgery, Hip Replacement, Hysterectomy, Other Additional Past Surgical Histo: BILAT SHOULDER REPLACEMENTS, COLOSTOMY AND REVERSAL, NEPHROSTOMY TUBES Alcohol Use: None General Adult EDM: Chief Complaint: MECHANICAL FALL HPI: HPI: Patient is a 75-year-old female brought in by EMS after a fall from standing. Patient got up to use the restroom. provided most of the history and states that she had called him and he saw her in the doorway moving back and forth that she then felt straight backwards and hit the back of her head on the bathroom floor. states she was out for 5 minutes and awoke when EMS arrived there. Denies any seizure-like activity. No vomiting. Patient takes a baby aspirin but no other blood thinners. Patient has multiple significant comorbidities. She states she gets around with a walker because she gets off balance and off her feet. Denies any diaphoresis, vision changes, chest pain, or tachycardia before she fell. Patient also is complaining of bilateral hand pain for approximately 5 days. Symptoms started on the right is moving up to her forearm. Has been seen by her primary care physician and had imaging done yesterday, had a negative venous ultrasound and negative x-rays of the forearms. Patient states the pain is sharp and comes every 7 to 11 minutes. Patient has a history of chronic pain and is taking gabapentin and hydrocodone without improvement. Review of Systems: Review of Systems: All other systems within normal limits except for as noted in the HPI Allergies: Allergies: Allergies Coded Allergies Type Severity Reaction Last Updated Verified No Known Drug Allergies 10/12/20 No Physical Exam: PE: Constitutional: Well developed, well nourished, moderate acute distress, non- toxic appearance. [] HENT: Normocephalic, occipital scalp hematoma, bilateral external ears normal, nose normal. [] Eyes: PERRLA, conjunctiva normal, no discharge. [] Neck: No rigidity, supple, no stridor. No C-spine tenderness [] Cardiovascular: Regular rate and rhythm, brisk cap refill, symmetrical pulses [] Lungs & Thorax: Non labored symmetric respirations, no tachypnea or respiratory distress [] Abdomen: Soft, nondistended. Skin: Warm, dry, no erythema, no rash. [] Back: Unremarkable Extremities: No deformities, range of motion grossly intact, no lower extremity edema. Bilateral hands deformity consistent with osteoarthritis [] Neurologic: Alert and oriented X 3, no focal deficits noted. No sensory defects on upper extremities [] Psychologic: Affect normal, judgement normal, mood normal. [] Current Patient Data: Vital Signs: Vital Signs Date Time Temp Pulse Resp B/P (MAP) Pulse Ox O2 Delivery O2 Flow Rate FiO2 12/03/20 08:03 98.4 78 20 120/78 (92) 90 Room Air EKG: EKG: Sinus rhythm with incomplete right bundle. Normal axis, no ST elevation or depression, no ectopy. [] Radiology/Procedures: Radiology/Procedures: EXAM: Bilateral upper extremity arterial Doppler sonogram. HISTORY: Arm pain. Peripheral vascular disease. TECHNIQUE: Griffiths scale and color Doppler sonographic evaluation of the bilateral upper extremity arteries with spectral waveform analysis was performed. FINDINGS: There are elevated peak systolic velocities throughout the majority of the bilateral upper extremity arteries, with exception of the bilateral distal ulnar arteries, distal left radial artery, proximal right subclavian artery and proximal right brachial artery. No arterial occlusion is seen. IMPRESSION: Elevated peak systolic velocities throughout the majority of the bilateral upper extremity arteries, suggesting a component of stenosis. No arterial occlusion is seen.[] CT head without contrast: Reason for examination: Head trauma. Comparison is made to previous study dated 12/02/2019. Helical images were obtained through the brain. No contrast was administered. Ventricular systems are symmetric and not abnormally dilated. No midline shift is seen. There is generalized parenchymal atrophy which is consistent with the patient's age. There is no evidence of intracranial hemorrhage, acute infarct, mass or edema. There are some patchy deep white matter changes in the frontal and parietal lobes bilaterally consistent with microvascular ischemic changes which are stable. No abnormalities of seen at the orbits. The paranasal sinuses and mastoid air cells are clear. No acute abnormality seen in the skull. IMPRESSION: No acute intracranial abnormality evident. Cerebral atrophy with microvascular ischemic changes in the frontal and parietal lobes. CT cervical spine without contrast: Helical images were obtained through the cervical spine from the skull base through the thoracic apices. No contrast was administered. Reconstruction was performed in sagittal and coronal planes. The C1 ring is intact. The odontoid process is intact and normally centered between the lateral masses of C1. The vertebral bodies of the cervical spine show a 2 mm anterolisthesis of C3 on C4. Remaining vertebral bodies are normally aligned anteriorly and posteriorly. No acute fracture is seen. Posterior elements are intact. There is severe degenerative disc disease at the C3-4, C5-6 and C6 disc levels. No site of significant spinal stenosis is evident. Prevertebral soft tissues are normal. IMPRESSION: Degenerative spondylosis with a 2 mm grade 1 anterolisthesis of C3 on C4 and severe degenerative disc disease at the C3-4, C5-6 and C6-7 levels. No significant spinal stenosis evident. Heart Score: C/O Chest Pain: No Risk Factors: Risk Factors: DM, Current or recent (<one month) smoker, HTN, HLP, family history of CAD, obesity. Risk Scores: Score 0 - 3: 2.5% MACE over next 6 weeks - Discharge Home Score 4 - 6: 20.3% MACE over next 6 weeks - Admit for Clinical Observation Score 7 - 10: 72.7% MACE over next 6 weeks - Early Invasive Strategies Course & Med Decision Making: Course & Med Decision Making Pertinent Labs and Imaging studies reviewed. (See chart for details) Discussed with Dr. Stone, would like to admit for observation at minimum for head injury with loss of consciousness for over 3 minutes. And observation since patient possibly syncopized. Show stenosis on her arterial study. We will transfer to [place] for MRI imaging, vascular consult, neurology consult. Patient's agreeable to plan. [] Dragon Disclaimer: Dragon Disclaimer: This electronic medical record was generated, in whole or in part, using a voice recognition dictation system. Departure Departure: Impression: Primary Impression: Pain in both upper extremities Additional Impression: Syncope and collapse Disposition: 02 SHORT TERM HOSPITAL Admitting Physician: Dylan Cervantes Condition: STABLE Referrals: ARABELLA RAZO (PCP) ARGELIA ANDERSON MD December 03, 2020 08:10
--- NOTE | 2020-12-03 08:16 | EKG ---
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
[2020-12-03 08:30] LABS: BASO % 0 % (0-3); EOS # 0.3 x10^3/uL (0.0-0.7); EOS % 3 % (0-3); HEMATOCRIT 31.8 % (36.0-47.0); HEMOGLOBIN 10.5 g/dL (12.0-15.5); LYMPH # 0.5 x10^3/uL (1.0-4.8); LYMPH % 5 % (24-48); MEAN CORPUSCULAR HEMOGLOBIN 32 pg (25-35); MEAN CORPUSCULAR HGB CONC 33 g/dL (31-37); MEAN CORPUSCULAR VOLUME 95 fL (79-100); MONO # 1.1 x10^3/uL (0.0-1.1); MONO % 12 % (0-9); NEUT # 7.4 x10^3uL (1.8-7.7); NEUT % 80 % (31-73); PLATELET COUNT 214 x10^3/uL (140-400); RED BLOOD COUNT 3.33 x10^6/uL (3.50-5.40); RED CELL DISTRIBUTION WIDTH 15.6 % (11.5-14.5); WHITE BLOOD COUNT 9.3 x10^3/uL (4.0-11.0)
[2020-12-03 09:09] LABS: CALCIUM 8.8 mg/dL (8.5-10.1); CREATININE 3.3 mg/dL (0.6-1.0); GFR 13.6; POTASSIUM 3.4 mmol/L (3.5-5.1)
[2020-12-03 09:11] LABS: BILIRUBIN,URINE NEG (NEG); CLARITY,URINE TURBID; COLOR,URINE BROWN; GLUCOSE,URINE NEG (NEG)
[2020-12-03 09:12] LABS: BACTERIA,URINE MOD /HPF (0-FEW); NITRITE,URINE NEG (NEG); UROBILINOGEN,URINE 0.2 mg/dL (0.2 mg/dL); WBC,URINE TNTC /HPF (0-4)
[2020-12-03 09:20] LABS: ALBUMIN 2.7 g/dL (3.4-5.0); ALBUMIN/GLOBULIN RATIO 0.6 (1.0-1.7); TOTAL BILIRUBIN 0.4 mg/dL (0.2-1.0); TOTAL PROTEIN 6.9 g/dL (6.4-8.2)
[2020-12-03 09:28] LABS: AMPHETAMINE/METHAMPHETAMINE NEG (NEG); BARBITURATES NEG (NEG); BENZODIAZEPINES NEG (NEG); CANNABINOIDS NEG (NEG); COCAINE NEG (NEG); METHADONE NEG (NEG); OPIATES POS (NEG); PHENCYCLIDINE NEG (NEG)
[2020-12-03] MEDS ORDERED: HYDROmorphone PF 1 MG/ML DISP.SYRIN IVP ONE (10:15)
--- NOTE | 2020-12-03 10:39 | RAD ---
EXAM: Bilateral upper extremity arterial Doppler sonogram. HISTORY: Arm pain. Peripheral vascular disease. TECHNIQUE: Griffiths scale and color Doppler sonographic evaluation of the bilateral upper extremity arter ies with spectral waveform analysis was performed. FINDINGS: There are elevated peak systolic velocities throughout the majority of the bilateral upper extremity arteries, with exception of the bilateral distal ulnar arteries, distal left radial artery, proximal right subclavian artery and proximal right brachial artery. No arterial occlusion is seen. IMPRESSION: Elevated peak systolic velocities throughout the majority of the bilateral upper extremit y arteries, suggesting a component of stenosis. No arterial occlusion is seen. Electronically signed by: Angelina Cruz MD (12/03/2020 10:36 AM) [facility]
== END 2020-12-03 15:45 | disposition short-term general hospital (02) ==
LOC: ER 07:34
DX: S00.03XA Contusion of scalp, initial encounter (principal); R55 Syncope and collapse; M19.042 Primary osteoarthritis, left hand; M19.041 Primary osteoarthritis, right hand; M19.90 Unspecified osteoarthritis, unspecified site; I10 Essential (primary) hypertension; W18.39XA Other fall on same level, initial encounter; Y93.89 Activity, other specified; Y92.89 Other specified places as the place of occurrence of the external cause; Y99.8 Other external cause status; Z79.899 Other long term (current) drug therapy
CPT/HCPCS: 36415; 70450; 72125; 80053; 80307; 81001; 83605; 83880; 84484; 85025; 85379; 87086; 93005; 93930; 96374; 96375; 99285; G0480; J2060; J3010

== ENCOUNTER 2021-01-03 13:24 | Emergency (ER) | payer MEDICARE, BC, OTHER ==
[~2021-01-03] VITALS: Ht 154.9 cm; Wt 91.3 kg
[2021-01-03] MEDS ORDERED: IV NORMAL SALINE 1,000ML 1,000 ML IV SCH (13:45)
[2021-01-03] MEDS ORDERED: FAMOTIDINE 20 MG/2 ML VIAL IVP ONE (13:45)
[2021-01-03] MEDS ORDERED: HYDROmorphone PF 1 MG/ML DISP.SYRIN IV/SQ PRN (13:45)
[2021-01-03] MEDS ORDERED: ACETAMINOPHEN 650 MG SUPP.RECT. PR ONE (13:45)
[2021-01-03] MEDS ORDERED: IV NORMAL SALINE 1,000ML 1,000 ML IV ONE (13:45)
[2021-01-03] MEDS ORDERED: ONDANSETRON PF 4 MG/2 ML VIAL. IVP ONE (13:45)
--- NOTE | 2021-01-03 13:56 | PHYS DOC ---
Past History Past Medical History: Arthritis, UTI Additional Past Medical Histor: UTERINE CA, BILAT NEPHROSTOMY (FERMIN BACA DO) Past Surgical History: Cancer Surgery, Hip Replacement, Hysterectomy, Other Additional Past Surgical Histo: BILAT SHOULDER REPLACEMENTS, COLOSTOMY AND REVERSAL, NEPHROSTOMY TUBES (FERMIN BACA DO) Alcohol Use: Rarely (FERMIN BACA DO) General Adult EDM: Chief Complaint: NAUSEA/VOMITING/DIARRHEA HPI: HPI: 75-year-old female past medical history of uterine cancer with EUGENIE-BSO, colostomy & reversal (h/o multiple abdominal surgeries) and bilateral nephrostomy tubes (placed via RMC), presents to the ED with (patient c onsents to his/her/their knowledge and involvement in pts' medical care), complaints of lower abdominal pain, nausea and vomiting for 2 days. Reports her last bowel movement was yesterday. EMR was reviewed and patient was seen in ED in September 2020 for abdominal pain with constipation but signed out AMA. (FERMIN BACA DO) Review of Systems: Review of Systems: Constitutional: Denies falling or blunt trauma Eyes: Denies change in visual acuity HENT: Denies nasal congestion or sore throat Respiratory: Denies cough or shortness of breath Cardiovascular: Denies chest pain or edema GI: Denies bloody stools or diarrhea : Denies hematuria or flank pain Musculoskeletal: Denies back pain or joint pain Integument: Denies rash or diaphoresis Neurologic: Denies headache, focal weakness or sensory changes Lymphatic: Denies swollen glands Psychiatric: Denies depression or anxiety (FERMIN BACA DO) Allergies: Allergies: Allergies Uncoded Allergies Type Severity Reaction Last Updated Verified cestomycin Allergy Unknown 01/03/21 (FERMIN BACA DO) Physical Exam: PE: Constitutional: flu appearing, obese, febrile HENT: Normocephalic, atraumatic, dry mucous membranes, hair oily-appears as if she's been sweating, Eyes: EOMI, conjunctiva normal, no discharge. Neck: Normal range of motion, supple, no rigidity or meningismus Cardiovascular: S1/2 present, regular rhythm, no tachycardia Lungs & Thorax: Speaking in full sentences, bilateral equal chest rise, no tachypnea or increased work of breathing Abdomen: soft, bilateral LLQ/RLQ tenderness with no rigidity or guarding, no murphys sign Skin: no rash or erythema but very warm to the touch : yellow urine in nephrostomy tube bag Extremities: No tenderness, no cyanosis, Neurologic: Alert and oriented X 3, no focal deficits noted. [] Psychologic: Affect normal, judgement normal, mood normal. [] (FERMIN BACA DO) Current Patient Data: Vital Signs: Vital Signs Date Time Temp Pulse Resp B/P (MAP) Pulse Ox O2 Delivery O2 Flow Rate FiO2 01/03/21 13:34 103.1 81 20 120/78 (92) 90 Room Air (FERMIN BACA DO) EKG: EKG: Sinus rhythm 80 bpm, no axis deviation, normal intervals, no obvious T wave inversions, no ST elevations or ST depressions (FERMIN BACA DO) Radiology/Procedures: Radiology/Procedures: IMAGING REPORT Signed PATIENT: CHELO MONSALVE RACCOUNT: [id number] : 1945 LOCATION: ER AGE: 75 SEX: F EXAM STATUS: REG ER ORD. PHYSICIAN: FERMIN BACA DO REASON: lower abd pain, n/v PROCEDURE: CT ABDOMEN PELVIS WO CONTRAST Exam: CT of abdomen and pelvis without contrast INDICATION: Lower abdominal pain, nausea vomiting TECHNIQUE: Sequential axial images through the abdomen and pelvis obtained without IV contrast. Sagittal and coronal reformatted images were reconstructed from the axial data and reviewed. Exposure: One or more of the following in the visualized dose reduction techniques were utilized for this examination: 1. Automated exposure control 2. Adjustment of the MA and/or KV according to patient size 3. Use of iterative of reconstructive technique Comparisons: 11/17/2019 FINDINGS: Heart size is normal. No pericardial effusion. Strandy opacities at the dependent portion lungs likely representing cyst. No pleural effusion. Evaluation of solid organs is limited secondary to noncontrast technique. Liver, spleen, pancreas and adrenals are unremarkable. Gallbladder is mildly distended. Bilateral percutaneous nephrostomy tubes are noted. The right-sided nephrostomy tube is slightly off center from the right renal pelvis. There is moderate righ t-sided hydronephrosis and hydroureter. No renal or ureteral calculi are identified. Evaluation of the pelvis is limited secondary to streak artifact from hip arthroplasties and embolization coils. Bladder is decompressed. Diverticulosis noted at the descending colon. There is diastases of the lower midline anterior abdominal wall with a superimposed periumbilical ventral hernia contains a short segment of small bowel. No free intra-abdominal air or fluid. No obstruction. Abdominal aorta has a normal course and caliber. No enlarged intra-abdominal lymph nodes are identified. IMPRESSION: 1. Diastases of the lower midline anterior abdominal wall with a small superimposed hernia containing short segment of small bowel. No discrete evidence of bowel obstruction is identified. 2. Bilateral percutaneous nephrostomy tubes are noted. The right sided nephrostomy tube is slightly off-center from the right renal pelvis. The right kidney demonstrates moderate hydronephrosis and hydroureter. Correlate with urinalysis would from the right nephrostomy. 3. Gallbladder is mildly distended. Correlate with symptomatology to determine the need for further evaluation with ultrasound. Electronically signed by: Trisha Guaman MD (01/03/2021 3:56 PM) [facility] DICTATED AND SIGNED BY: TRISHA GUAMAN MD DATE: 01/03/21 1545 CC: ARABELLA RAZO; FERMIN BACA DO ~MTH0 0 (FERMIN BACA DO) Radiology/Procedures: [place] [id number] IMAGING REPORT Signed PATIENT: CHELO MONSALVE RACCOUNT: [id number] : 1945 LOCATION: ER AGE: 75 SEX: F EXAM STATUS: REG ER ORD. PHYSICIAN: FERMIN BACA DO REASON: lower abd pain, n/v PROCEDURE: CT ABDOMEN PELVIS WO CONTRAST Exam: CT of abdomen and pelvis without contrast INDICATION: Lower abdominal pain, nausea vomiting TECHNIQUE: Sequential axial images through the abdomen and pelvis obtained without IV contrast. Sagittal and coronal reformatted images were reconstructed from the axial data and reviewed. Exposure: One or more of the following in the visualized dose reduction techniques were utilized for this examination: 1. Automated exposure control 2. Adjustment of the MA and/or KV according to patient size 3. Use of iterative of reconstructive technique Comparisons: 11/17/2019 FINDINGS: Heart size is normal. No pericardial effusion. Strandy opacities at the dependent portion lungs likely representing cyst. No pleural effusion. Evaluation of solid organs is limited secondary to noncontrast technique. Liver, spleen, pancreas and adrenals are unremarkable. Gallbladder is mildly distended. Bilateral percutaneous nephrostomy tubes are noted. The right-sided nephrostomy tube is slightly off center from the right renal pelvis. There is moderate right-sided hydronephrosis and hydroureter. No renal or ureteral calculi are identified. Evaluation of the pelvis is limited secondary to streak artifact from hip arthroplasties and embolization coils. Bladder is decompressed. Diverticulosis noted at the descending colon. There is diastases of the lower midline anterior abdominal wall with a superimposed periumbilical ventral hernia contains a short segment of small bowel. No free intra-abdominal air or fluid. No obstruction. Abdominal aorta has a normal course and caliber. No enlarged intra-abdominal lymph nodes are identified. IMPRESSION: 1. Diastases of the lower midline anterior abdominal wall with a small superimposed hernia containing short segment of small bowel. No discrete evidence of bowel obstruction is identified. 2. Bilateral percutaneous nephrostomy tubes are noted. The right sided nephrostomy tube is slightly off-center from the right renal pelvis. The right kidney demonstrates moderate hydronephrosis and hydroureter. Correlate with urinalysis would from the right nephrostomy. 3. Gallbladder is mildly distended. Correlate with symptomatology to determine the need for further evaluation with ultrasound. Electronically signed by: Trisha Guaman MD (01/03/2021 3:56 PM) [facility] DICTATED AND SIGNED BY: TRISHA GUAMAN MD DATE: 01/03/21 0919 CC: ARABELLA RAZO; FERMIN BACA DO ~MTH0 [address] [address] O ~MTH0 [address] [address] IMAGING REPORT Signed PATIENT: CHELO MONSALVE: [id number] : 1945 LOCATION: ER AGE: 75 SEX: F EXAM STATUS: REG ER ORD. PHYSICIAN: FERMIN BACA DO REASON: ruq pain, r/o acute ada PROCEDURE: ABDOMEN LTD Exam: Ultrasound abdomen limited Indication: Right upper quadrant pain Technique: Real-time grayscale and color Doppler images of the right upper quadrant were obtained by the department hothouse worker. Comparisons: CT abdomen and pelvis same day FINDINGS: Liver contour is normal. Hepatopedal flow noted in the portal vein. Gallbladder is mildly distended. No pericholecystic fluid or wall thickening. Common bile duct measures 2 mm in diameter. Right kidney is atrophic. There is moderate right-sided hydronephrosis. Visualized portions of the aorta and IVC are unremarkable. IMPRESSION: 1. Mildly distended gallbladder without secondary evidence for acute cholecysti tis. 2. Moderate right-sided hydronephrosis. 3. Normal sonographic appearance of the liver. Electronically signed by: Trisha Guaman MD (01/03/2021 7:03 PM) [facility] DICTATED AND SIGNED BY: TRISHA GUAMAN MD DATE: 01/03/211857 CC: ROGELIO ALVA MD; ARABELLA RAZO; FERMIN BACA DO ~MTH0 0 (ROGELIO ALVA MD) Heart Score: C/O Chest Pain: No Risk Factors: Risk Factors: DM, Current or recent (<one month) smoker, HTN, HLP, family history of CAD, obesity. Risk Scores: Score 0 - 3: 2.5% MACE over next 6 weeks - Discharge Home Score 4 - 6: 20.3% MACE over next 6 weeks - Admit for Clinical Observation Score 7 - 10: 72.7% MACE over next 6 weeks - Early Invasive Strategies (FERMIN BACA DO) Course & Med Decision Making: Course & Med Decision Making Pertinent Labs and Imaging studies reviewed. (See chart for details) Patient presented to the ED with nausea and vomiting and lower abdominal pain. Patient febrile with unremarkable chest x-ray. No meningismus on physical exam. Patient has required multiple antiemetics in ED, unable to tolerate food/drink. Plan is to admit for fever, pain and lower abdominal pain. At shift change urinalysis and right upper quadrant ultrasound not completed. I had spoken to Dr. Cervantes regarding admission but will wait for ultrasound findings-pt wants to be transferred to [facility] if her ultrasound was abnormal. Patient was stable at sign out with no Hernandez sign or RUQ tenderness. (FERMIN BACA DO) Course & Med Decision Making See Dr. Baca chart for details prior shift change 1800 hrs. Pt. and requesting transfer to [facility]. Discussed presentation, testing and tx. plan with Dr. Carlos A Savagepard - will accept pt in transfer to [facility]. Pt. started on Zosyn and Flagyl. Impression: 1. Abdomen Pain (Upper Rt. and lower abdomen) 2. Distended Gallbladder 3. Leukocytosis 11.7 4. Fever 5. Anemia 10.3 Hgb 6. Renal Insuf. BUN 24/Creat 1.8 7. Hydronephrosis-Rt,.with Nephrostomy tubes 8. Hx. Uterine Cancer- S/P Hysterectomy, chemo and radiation 9. Malnutrition- Alb. 2.4 (ROGELIO ALVA MD) Dragon Disclaimer: Dragon Disclaimer: This electronic medical record was generated, in whole or in part, using a voice recognition dictation system. (FERMIN BACA DO) Departure Departure: Impression: Primary Impression: Fever Additional Impressions: Nausea and vomiting Lower abdominal pain Referrals: ARABELLA RAZO (PCP) Dragon Disclaimer This chart was dictated in whole or in part using Voice Recognition software in a busy, high-work load, and often noisy Emergency Department environment. It may contain unintended and wholly unrecognized errors or omissions. (ROGELIO ALVA MD) FERMIN BACA DO Jan 03, 2021 13:56 ROGELIO ALVA MD Jan 03, 2021 19:01
[2021-01-03] MEDS ORDERED: CONTRAST GIVEN. MC PRN (14:00)
[2021-01-03] MEDS ORDERED: IOHEXOL 300 MG/ML 75 ML VIAL. IV ONE (14:00)
[2021-01-03 15:04] LABS: CALCIUM 8.5 mg/dL (8.5-10.1); CREATININE 1.8 mg/dL (0.6-1.0); GFR 27.4; POTASSIUM 3.3 mmol/L (3.5-5.1)
[2021-01-03 15:05] LABS: BASO % 0 % (0-3); EOS % 0 % (0-3); HEMOGLOBIN 10.3 g/dL (12.0-15.5); LYMPH # 0.4 x10^3/uL (1.0-4.8); LYMPH % 3 % (24-48); MEAN CORPUSCULAR HEMOGLOBIN 31 pg (25-35); MEAN CORPUSCULAR HGB CONC 33 g/dL (31-37); MEAN CORPUSCULAR VOLUME 95 fL (79-100); MONO # 0.9 x10^3/uL (0.0-1.1); MONO % 8 % (0-9); NEUT # 10.3 x10^3uL (1.8-7.7); NEUT % 89 % (31-73); PLATELET COUNT 218 x10^3/uL (140-400); RED BLOOD COUNT 3.27 x10^6/uL (3.50-5.40); RED CELL DISTRIBUTION WIDTH 14.2 % (11.5-14.5); WHITE BLOOD COUNT 11.7 x10^3/uL (4.0-11.0)
--- NOTE | 2021-01-03 15:09 | EKG ---
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
[2021-01-03 15:18] LABS: ALBUMIN 2.4 g/dL (3.4-5.0); DIRECT BILIRUBIN 0.2 mg/dL (0.0-0.2); TOTAL BILIRUBIN 0.6 mg/dL (0.2-1.0); TOTAL PROTEIN 6.3 g/dL (6.4-8.2)
[2021-01-03] MEDS ORDERED: METOCLOPRAMIDE HCL 10 MG/2 ML VIAL. IVP ONE (15:45)
--- NOTE | 2021-01-03 15:58 | RAD ---
Exam: CT of abdomen and pelvis without contrast INDICATION: Lower abdominal pain, nausea vomiting TECHNIQUE: Sequential axial images through the abdomen and pelvis obtained without IV contrast. Sagit lindsey and coronal reformatted images were reconstructed from the axial data and reviewed. Exposure: One or more of the following in the visualized dose reduction techniques were utilized for this examination: 1. Automated exposure control 2. Adjustment of the MA and/or KV according to patient size 3. Use of iterative of reconstructive technique Comparisons: 11/17/2019 FINDINGS: Heart size is normal. No pericardial effusion. Strandy opacities at the dependent portion lungs likel y representing cyst. No pleural effusion. Evaluation of solid organs is limited secondary to noncontrast technique. Liver, spleen, pancreas and adrenals are unremarkable. Gallbladder is mildly distended. Bilateral percutaneous nephrostomy tubes are noted. The right-sided nephrostomy tube is slightly off center from the right renal pelvis. There is moderate right-sided hydronephrosis and hydroureter. No renal or ureteral calculi are identified. Evaluation of the pelvis is limited secondary to streak artifact from hip arthroplasties and emboliza tion coils. Bladder is decompressed. Diverticulosis noted at the descending colon. There is diastases of the lower midline anterior abdomi nal wall with a superimposed periumbilical ventral hernia contains a short segment of small bowel. No free intra-abdominal air or fluid. No obstruction. Abdominal aorta has a normal course and caliber. No enlarged intra-abdominal lymph nodes are identified. IMPRESSION: 1. Diastases of the lower midline anterior abdominal wall with a small superimposed hernia containin g short segment of small bowel. No discrete evidence of bowel obstruction is identified. 2. Bilateral percutaneous nephrostomy tubes are noted. The right sided nephrostomy tube is slightly off-center from the right renal pelvis. The right kidney demonstrates moderate hydronephrosis and hyd roureter. Correlate with urinalysis would from the right nephrostomy. 3. Gallbladder is mildly distended. Correlate with symptomatology to determine the need for further evaluation with ultrasound. Electronically signed by: Trisha Mazariegos MD (01/03/2021 3:56 PM) [facility]
--- NOTE | 2021-01-03 19:05 | RAD ---
Exam: Ultrasound abdomen limited Indication: Right upper quadrant pain Technique: Real-time grayscale and color Doppler images of the right upper quadrant were obtained by the department tableau analyst. Comparisons: CT abdomen and pelvis same day FINDINGS: Liver contour is normal. Hepatopedal flow noted in the portal vein. Gallbladder is mildly distended. No pericholecystic fluid or wall thickening. Common bile duct measur es 2 mm in diameter. Right kidney is atrophic. There is moderate right-sided hydronephrosis. Visualized portions of the aorta and IVC are unremarkable. IMPRESSION: 1. Mildly distended gallbladder without secondary evidence for acute cholecystitis. 2. Moderate right-sided hydronephrosis. 3. Normal sonographic appearance of the liver. Electronically signed by: Trisha Mazariegos MD (01/03/2021 7:03 PM) [facility]
[2021-01-03] MEDS ORDERED: PIPERACILLIN/TAZOBACTAM 2.25 GM in IV NORMAL SALINE 50ML 50 ML IV ONE (20:00)
[2021-01-03] MEDS ORDERED: IV NORMAL SALINE 50ML 50 ML ONE (20:07)
[2021-01-03] MEDS ORDERED: PIPERACILLIN/TAZOBACTAM 2.25 GM VIAL IV ONE (20:07)
[2021-01-03 21:30] VITALS: BP 130/68
== END 2021-01-03 21:55 | disposition short-term general hospital (02) ==
LOC: ER 13:24
DX: K82.8 Other specified diseases of gallbladder (principal); D72.829 Elevated white blood cell count, unspecified; D64.9 Anemia, unspecified; N13.2 Hydronephrosis with renal and ureteral calculous obstruction; E46 Unspecified protein-calorie malnutrition; R11.2 Nausea with vomiting, unspecified; M19.90 Unspecified osteoarthritis, unspecified site; Z85.42 Personal history of malignant neoplasm of other parts of uterus; Z68.38 Body mass index [BMI] 38.0-38.9, adult; Z87.440 Personal history of urinary (tract) infections; Z93.3 Colostomy status; Z90.710 Acquired absence of both cervix and uterus; Z88.1 Allergy status to other antibiotic agents
CPT/HCPCS: 36415; 74176; 76705; 80048; 80076; 82550; 83605; 83690; 84484; 85025; 87040; 93005; 96361; 96365; 96368; 96375; 99285; J1170; J2405; J2543; J2765; J3490; J7030

== ENCOUNTER 2021-01-26 19:26 | Inpatient (IN) | payer MEDICARE, BC, OTHER ==
[~2021-01-26] VITALS: Ht 157.5 cm; Wt 86.1 kg
[2021-01-26] MEDS ORDERED: IV NORMAL SALINE 1,000ML 1,000 ML IV ONE (20:00)
--- NOTE | 2021-01-26 20:06 | PHYS DOC ---
Past History Past Medical History: Arthritis, UTI Additional Past Medical Histor: UTERINE CA, BILAT NEPHROSTOMY (DEBRA MOSS APRN) Past Surgical History: Cancer Surgery, Hip Replacement, Hysterectomy, Other Additional Past Surgical Histo: BILAT SHOULDER REPLACEMENTS, COLOSTOMY AND REVERSAL, NEPHROSTOMY TUBES (DEBRA MOSS APRN) Alcohol Use: None (DEBRA MOSS APRN) General Adult EDM: Chief Complaint: SYNCOPE HPI: HPI: Patient is a 75-year-old female who presents to the ER today after having a syncopal episode on the toilet approximately 1 hour prior to ER arrival. Patient's reports that she did not hit her head but did have a loss of consciousness for approximately 5 minutes. Patient has no current complaints at this time. Patient denies nausea, vomiting, lightheadedness or dizziness, head pain, neck pain, abdominal pain, chest pain, shortness of breath. She is not on any blood thinners. Patient has a history of hypertension, gastroparesis, uterine cancer. She was diagnosed with pyelonephritis on January 06 at [facility] and is on Cipro. (DEBRA MOSS APRN) Review of Systems: Review of Systems: 14 body systems of the review of systems have been reviewed. See HPI for pertinent positive and negative responses, otherwise all other systems are negative, nonpertinent or noncontributory (DEBRA MOSS APRN) Current Medications: Current Meds: Current Medications Medications (Trade) Dose Ordered Sig/Drea Start Time Stop Time Status Last Admin Dose Admin Sodium Chloride 1,000 ml @ 1,000 mls/hr 1X ONCE 01/26/21 20:00 01/26/21 20:59 UNV (DEBRA MOSS APRN) Allergies: Allergies: Allergies Uncoded Allergies Type Severity Reaction Last Updated Verified cestomycin Allergy Unknown 01/03/21 (DEBRA MOSS APRN) Physical Exam: PE: Constitutional: Well developed, well nourished, no acute distress, non-toxic appearance. [] HENT: Normocephalic, atraumatic, bilateral external ears normal, oropharynx moist, no oral exudates, nose normal. [] Eyes: PERRLA, EOMI, conjunctiva normal, no discharge. [] Neck: Normal range of motion, no tenderness, supple, no stridor. No cervical spinal tenderness with palpation [] Cardiovascular:Heart rate regular rhythm, no murmur [] Lungs & Thorax: Bilateral breath sounds clear to auscultation [] Abdomen: Bowel sounds normal, soft, no tenderness, no masses, no pulsatile masses. [] Skin: Warm, dry, no erythema, no rash. [] Back: No bony spinal tenderness with palpation, patient has dressings noted to bilateral flank area from nephrostomy tubes [] Extremities: No tenderness, no cyanosis, no clubbing, ROM intact, no edema. [] Neurologic: Alert and oriented X 3, normal motor function, normal sensory function, no focal deficits noted. [] Psychologic: Affect normal, judgement normal, mood normal. [] (DEBRA MOSS APRN) Current Patient Data: Labs: Laboratory Tests Test 01/26/21 20:00 01/26/21 20:58 White Blood Count 6.3 x10^3/uL Red Blood Count 3.33 x10^6/uL Hemoglobin 10.3 g/dL Hematocrit 31.9 % Mean Corpuscular Volume 96 fL Mean Corpuscular Hemoglobin 31 pg Mean Corpuscular Hemoglobin Concent 32 g/dL Red Cell Distribution Width 14.8 % Platelet Count 269 x10^3/uL Neutrophils (%) (Auto) 76 % Lymphocytes (%) (Auto) 11 % Monocytes (%) (Auto) 10 % Eosinophils (%) (Auto) 3 % Basophils (%) (Auto) 1 % Neutrophils # (Auto) 4.8 x10^3uL Lymphocytes # (Auto) 0.7 x10^3/uL Monocytes # (Auto) 0.6 x10^3/uL Eosinophils # (Auto) 0.2 x10^3/uL Basophils # (Auto) 0.1 x10^3/uL Sodium Level 140 mmol/L Potassium Level 3.8 mmol/L Chloride Level 105 mmol/L Carbon Dioxide Level 29 mmol/L Anion Gap 6 Blood Urea Nitrogen 30 mg/dL Creatinine 3.0 mg/dL Estimated GFR (Cockcroft-Gault) 15.2 BUN/Creatinine Ratio 10 Glucose Level 177 mg/dL Calcium Level 8.7 mg/dL Total Bilirubin 0.3 mg/dL Aspartate Amino Transf (AST/SGOT) 24 U/L Alanine Aminotransferase (ALT/SGPT) 28 U/L Alkaline Phosphatase 144 U/L Troponin I Quantitative < 0.017 ng/mL Total Protein 6.3 g/dL Albumin 2.9 g/dL Albumin/Globulin Ratio 0.9 Urine Collection Type Unknown Urine Color Yellow Urine Clarity Cloudy Urine pH 5.5 Urine Specific [place] >=1.030 Urine Protein >100 mg/dl Urine Glucose (UA) Neg mg/dL Urine Ketones (Stick) 15 mg/dL Urine Blood Large Urine Nitrite Neg Urine Bilirubin Small Urine Urobilinogen Dipstick 0.2 mg/dL Urine Leukocyte Esterase Small Urine RBC Tntc /HPF Urine WBC Tntc /HPF Urine Squamous Epithelial Cells Few /LPF Urine Bacteria Many /HPF Current Medications Medications (Trade) Dose Ordered Sig/Drea Route PRN Reason Start Time Stop Time Status Last Admin Dose Admin Sodium Chloride 1,000 ml @ 1,000 mls/hr 1X ONCE IV 01/26/21 20:00 01/26/21 20:59 DC 01/26/21 20:20 Vital Signs: Vital Signs Date Time Temp Pulse Resp B/P (MAP) Pulse Ox O2 Delivery O2 Flow Rate FiO2 01/26/21 19:26 97.9 65 20 107/49 94 (DEBRA MOSS APRN) EKG: EKG: EKG was performed at 1940 it shows sinus rhythm with PACs with no STEMI as read by Dr. Purdy (DEBRA MOSS APRN) Radiology/Procedures: Radiology/Procedures: PROCEDURE: CT HEAD AND CERVICAL SPINE WO CT HEAD AND C-SPINE WO History: Reason: syncope / Spl. Instructions: / History: Comparison: December 03, 2020 Technique: Noncontrast CT imaging was performed of the head and cervical spine. Coronal and sagittal reconstructions were performed. Exposure: One or more of the following individualized dose reduction techniques were utilized for this examination: 1. Automated exposure control 2. Adjustment of the mA and/or kV according to patient size 3. Use of iterative reconstruction technique. Findings: Head CT: No intracranial hemorrhage. No mass effect. No hydrocephalus. Mild brain parenchymal volume loss. Moderate foci of decreased attenuation within the hemispheric white matter, most often due to chronic microvascular ischemia, unchanged. Imaged orbits are unremarkable. Imaged paranasal sinuses and mastoid air cells are clear. No acute calvarial fracture. Cervical spine CT: Grade 1 anterolisthesis C3 on C4, unchanged. Reversal the normal cervical lordosis. Normal vertebral body height. No acute fracture. Moderate to advanced degenerative disc changes most prominent C3-C4, C4-C5 and C5-C6. Facet arthropathy most prominent left C3-C4. No high-grade canal narr owing. Multilevel neuroforaminal narrowing. Soft tissues unremarkable. Impression: Head CT: 1. No acute intracranial abnormality. 2. Moderate sequelae of chronic microvascular ischemia, unchanged. Cervical spine CT: 1. No acute fracture or subluxation of the cervical spine. 2. Multilevel cervical spondylosis. Electronically signed by: Robinson Rodriguez DO (01/26/2021 9:20 PM) [facility] DICTATED AND SIGNED BY: ROBINSON RODRIGUEZ DO DATE: 01/26/212113 CC: ARABELLA RAZO; DEBRA MOSS APRN ~MTH0 0 PROCEDURE: PORTABLE CHEST 1V XR CHEST 1V History: Reason: syncope / Spl. Instructions: / History: Comparison: December 02, 2019 Findings: No consolidation or pleural effusion. Normal heart size. No pneumothorax. Stable left chest wall port. Bilateral shoulder arthroplasties. Impression: 1. No acute cardiopulmonary process. Electronically signed by: Robinson Rodriguez DO (01/26/2021 9:11 PM) [facility] DICTATED AND SIGNED BY: ROBINSON RODRIGUEZ DO DATE: 01/26/212109 CC: ARABELLA RAZO; DEBRA MOSS APRN ~MTH0 0 (DEBRA MOSS APRN) Heart Score: C/O Chest Pain: No Risk Factors: Risk Factors: DM, Current or recent (<one month) smoker, HTN, HLP, family history of CAD, obesity. Risk Scores: Score 0 - 3: 2.5% MACE over next 6 weeks - Discharge Home Score 4 - 6: 20.3% MACE over next 6 weeks - Admit for Clinical Observation Score 7 - 10: 72.7% MACE over next 6 weeks - Early Invasive Strategies (DEBRA MOSS APRN) Course & Med Decision Making: Course & Med Decision Making Pertinent Labs and Imaging studies reviewed. (See chart for details) Patient is a 75-year-old female being evaluated in the ER today for syncopal episode while on the toilet. Her work-up in the ER today included blood work, UA, EKG, chest x-ray, CT head/spine. Her lab work shows an elevation in her BUN and creatinine. It is unsure if this is acute versus chronic. Patient was had a creatinine of 1.6 on 01/03. Her hemoglobin and hematocrit were mildly de creased. UA showed a large amount of blood and too numerous to count white blood cells. Patient was given Rocephin. Her CT head/spine was negative chest x-ray was negative. Patient was road tested, she denied having any dizziness. Patient was noted to have a limp on the left side but patient and her report that it is normal for her she has left leg weakness normally. [place] syncope score: low risk group for serious outcomes. I spoke to patient and her regarding admission to the hospital. They requested to be transferred to [facility] since patient had nephrostomy tubes placed at [facility]. Patient and her decided that they would like to be admitted to this facility. I spoke to Dr. Stone who is accepted the patient under his care for acute kidney injury. Patient now under the care of Dr. Stone. His case was discussed with my supervising physician (DEBRA MOSS APRN) Course & Med Decision Making Did not see or evaluate patient. Agree with CHILLER HAND's work-up and disposition per note. (JAYLA PURDY MD) Dragon Disclaimer: Dragon Disclaimer: This electronic medical record was generated, in whole or in part, using a voice recognition dictation system. (DEBRA MOSS APRN) Departure Departure: Impression: Primary Impression: DANE (acute kidney injury) Disposition: ADMITTED INPATIENT Condition: STABLE Referrals: ARABELLA RAZO (PCP) DEBRA MOSS APRN Jan 26, 2021 20:06 JAYLA PURDY MD Jan 27, 2021 02:07
[2021-01-26 20:16] LABS: BASO # 0.1 x10^3/uL (0.0-0.2); BASO % 1 % (0-3); EOS # 0.2 x10^3/uL (0.0-0.7); EOS % 3 % (0-3); HEMATOCRIT 31.9 % (36.0-47.0); HEMOGLOBIN 10.3 g/dL (12.0-15.5); LYMPH # 0.7 x10^3/uL (1.0-4.8); LYMPH % 11 % (24-48); MEAN CORPUSCULAR HEMOGLOBIN 31 pg (25-35); MEAN CORPUSCULAR HGB CONC 32 g/dL (31-37); MEAN CORPUSCULAR VOLUME 96 fL (79-100); MONO # 0.6 x10^3/uL (0.0-1.1); MONO % 10 % (0-9); NEUT # 4.8 x10^3uL (1.8-7.7); NEUT % 76 % (31-73); PLATELET COUNT 269 x10^3/uL (140-400); RED BLOOD COUNT 3.33 x10^6/uL (3.50-5.40); RED CELL DISTRIBUTION WIDTH 14.8 % (11.5-14.5); WHITE BLOOD COUNT 6.3 x10^3/uL (4.0-11.0)
[2021-01-26 20:24] LABS: CALCIUM 8.7 mg/dL (8.5-10.1); GFR 15.2; POTASSIUM 3.8 mmol/L (3.5-5.1)
--- NOTE | 2021-01-26 20:24 | EKG ---
[address] [address] Test Date: 2021-01-26 Test Time: 19:40:44 Pat Name: CHELO MONSALVE Department: Room: Gender: F Regulatory Specialist: : [id number] Requested By: DEBRA MOSS Order Number: [id number] Reading MD: Ty Bates Measurements Intervals [place] Rate: 67 P: 29 WA: 170 QRS: 30 QRSD: 84 T: 49 QT: 420 QTc: 447 Interpretive Statements SINUS RHYTHM ATRIAL PREMATURE COMPLEX(ES) T ABNORMALITY IN ANTEROSEPTAL LEADS ABNORMAL ECG Electronically Signed On 02-01-2021 12:45:11 CDT by Ty Bates
[2021-01-26 20:29] LABS: ALBUMIN 2.9 g/dL (3.4-5.0); ALBUMIN/GLOBULIN RATIO 0.9 (1.0-1.7); TOTAL BILIRUBIN 0.3 mg/dL (0.2-1.0); TOTAL PROTEIN 6.3 g/dL (6.4-8.2)
--- NOTE | 2021-01-26 21:13 | RAD ---
XR CHEST 1V History: Reason: syncope / Spl. Instructions: / History: Comparison: December 02, 2019 Findings: No consolidation or pleural effusion. Normal heart size. No pneumothorax. Stable left chest wall port . Bilateral shoulder arthroplasties. Impression: 1. No acute cardiopulmonary process. Electronically signed by: Robinson Carlos DO (01/26/2021 9:11 PM) [facility]
--- NOTE | 2021-01-26 21:23 | RAD ---
CT HEAD AND C-SPINE WO History: Reason: syncope / Spl. Instructions: / History: Comparison: December 03, 2020 Technique: Noncontrast CT imaging was performed of the head and cervical spine. Coronal and sagittal reconstructions were performed. Exposure: One or more of the following individualized dose reduction techniques were utilized for thi s examination: 1. Automated exposure control 2. Adjustment of the mA and/or kV according to patient size 3. Use of iterative reconstruction technique. Findings: Head CT: No intracranial hemorrhage. No mass effect. No hydrocephalus. Mild brain parenchymal volume loss. Moderate foci of decreased attenuation within the hemispheric whi te matter, most often due to chronic microvascular ischemia, unchanged. Imaged orbits are unremarkable. Imaged paranasal sinuses and mastoid air cells are clear. No acute ca lvarial fracture. Cervical spine CT: Grade 1 anterolisthesis C3 on C4, unchanged. Reversal the normal cervical lordosis. Normal vertebral body height. No acute fracture. Moderate to advanced degenerative disc changes most prominent C3-C4, C4-C5 and C5-C6. Facet arthropat hy most prominent left C3-C4. No high-grade canal narrowing. Multilevel neuroforaminal narrowing. Soft tissues unremarkable. Impression: Head CT: 1. No acute intracranial abnormality. 2. Moderate sequelae of chronic microvascular ischemia, unchanged. Cervical spine CT: 1. No acute fracture or subluxation of the cervical spine. 2. Multilevel cervical spondylosis. Electronically signed by: Robinson Carlos DO (01/26/2021 9:20 PM) [facility]
[2021-01-26 21:27] LABS: BILIRUBIN,URINE SMALL (NEG); CLARITY,URINE CLOUDY; COLOR,URINE YELLOW; GLUCOSE,URINE NEG (NEG)
[2021-01-26 21:28] LABS: NITRITE,URINE NEG (NEG); UROBILINOGEN,URINE 0.2 mg/dL (0.2 mg/dL)
[2021-01-26 21:29] LABS: BACTERIA,URINE MANY /HPF (0-FEW); RBC,URINE TNTC /HPF (0-2); SQUAMOUS EPITHELIAL CELL,UR FEW /LPF; WBC,URINE TNTC /HPF (0-4)
[2021-01-26] MEDS ORDERED: cefTRIAXone SODIUM 1 GM VIAL ONE (22:39)
[2021-01-26] MEDS ORDERED: IV NORMAL SALINE 50ML 50 ML ONE (22:39)
[2021-01-26] MEDS ORDERED: ONDANSETRON PF 4 MG/2 ML VIAL. IVP PRN (22:45)
[2021-01-27] MEDS: IV NORMAL SALINE 1,000ML 1,000 ML IV SCH ×2 (00:27→00:35)
[2021-01-27 01:44] VITALS: BP 126/79
--- NOTE | 2021-01-27 01:46 | NUR ---
Report rec'd from Bushra MENCHACA; admitted to Rm 125 via cart from ED in stable condition; A&Ox4, VSS; denies any pain; states she was sitting on toilet at home "and I guess I passed out"; admitting dx DANE/UTI with creatnine 3.0; bilat nephrostomy tubes intact, urine clear yellow; admit hx taken, unsure of home medications, will contact pharmacy in a.m. for info; room orientation given, plan of care discussed, verbalizes understanding; IV NS infusing via Left chest wall [id number], accessed via Ruggiero needle while in ED; siderails up x2, call ramirez in reach; plan to return home with once cleared; voices no needs or concerns at present time.
[2021-01-27 07:39] VITALS: BP 195/86
[2021-01-27 10:53] VITALS: BP 133/66
[2021-01-27 11:16] LABS: BLOOD UREA NITROGEN 28 mg/dL (7-20)
[2021-01-27 11:47] LABS: CREATININE 2.4 mg/dL (0.6-1.0); GFR 19.6
[2021-01-27 12:56] VITALS: BP 133/73
[2021-01-27 12:59] VITALS: BP_SYST 141; BP_SYST 146; BP_DIAS 66; BP_DIAS 68
[2021-01-27] MEDS ORDERED: levoFLOXacin 500 MG TABLET PO ONE (15:00)
--- NOTE | 2021-01-27 15:02 | NUR ---
DISCHARGE Pt discharged today by Dr. Cervantes. Pt and pt's son verbalized understanding off all discharge paperwork and prescriptions. GCS 15, VSS upon discharge. Pt wheelchair to hospital exit and accompanied home by son and . [facility] to come and care for patient after discharge. All questions addressed and first dose of antibiotic given prior to DC CC, RN
--- NOTE | 2021-01-27 15:17 | SSS ---
ADMIT DATE: 01/26/2021 HISTORY OF PRESENT ILLNESS: The patient is a 75-year-old female patient who presented to the Emergency Room with a syncopal episode. She apparently has severe constipation, has been in and out of the toilet and approximately an hour before arrival to the emergency room, she had what seemed to be a syncopal episode. The patient's reports that she did not hit her head, but did have a loss of consciousness for approximately 5 minutes. The patient has no current complaints at this time. The patient denies any nausea, vomiting, lightheadedness, dizziness, head pain, neck pain, abdominal pain, chest pain, shortness of breath. She is not on any blood thinner. The patient has a history of hypertension, gastroparesis, uterine cancer. She was diagnosed with pyelonephritis on 01/06 at [facility] and is on Cipro. She was extensively investigated in the emergency room, has had lab work as well as imaging studies. Her white cell count was only 6300 with a normochromic normocytic anemia. Her chemistry showed that she has acute on chronic kidney injury with a BUN of 30, creatinine was 3. She had had CT scan of the head and cervical spine that were unremarkable and her chest x-ray was also unremarkable. The patient was admitted and was treated with IV fluid in form of normal saline at 100 mL per hour together with fentanyl citrate, did receive a gram of Rocephin in the emergency room. Her urinalysis showed the patient has a small amount of leukocyte esterase, too numerous to count rbc's, too numerous to count wbc's and many bacteria. The patient was continued on all her medications. PAST MEDICAL HISTORY: Significant for hypertension, generalized osteoarthritis. She has uterine cancer that was treated initially surgically and then has received radiation treatment and chemotherapy. She has also bilateral sensorineural deafness, gastroparesis, bilateral hydronephrosis requiring bilateral nephrostomy tube placement. PAST SURGICAL HISTORY: Significant for bilateral shoulder replacement, bilateral hip replacement. She has a total abdominal hysterectomy, bilateral salpingo-oophorectomy, appendectomy, colostomy and reversal, a Port-A-Cath placement. She has also bilateral nephrostomy tubes for her presumed bilateral hydronephrosis. ALLERGIES: SHE IS ALLERGIC TO KEFLEX. MEDICATIONS: She is on letrozole 2.5 mg daily, meloxicam 7.5 mg daily, hydrocodone 7.5/325 one tablet every 6 hours. She is on Trintellix 20 mg once a day, Colace 100 mg twice a day, ondansetron 4 mg every 6 hours as needed and prednisone 10 mg once a day. FAMILY HISTORY: She has 2 brothers, 1 of them has osteoarthritis and chronic back pain, the other 1 is healthy. She has 1 sister that does not keep in touch with. She is also alcoholic and drug addict. According to her, her father at the age of 77 because of myocardial infarction. Her mother at age of 81 due to complication of end-stage renal disease, on hemodialysis. SOCIAL HISTORY: She is and lives with her . She has 2 sons who are living in [place]. She does not smoke. She drinks alcohol at nighttime. She does drink a glass of wine every night. She does not use any drugs. She is retired. REVIEW OF SYSTEMS: As per history of present illness. PHYSICAL EXAMINATION: GENERAL: On arrival to the emergency room, she looked well and was clearly in no apparent respiratory distress. No pallor, jaundice, cyanosis, or thyromegaly. No jugular venous distention. No lower limb edema. VITAL SIGNS: Her heart rate was 65, blood pressure was 107/49, temperature was 97.9, respiratory rate was 20 and oxygen saturation was 94%. HEAD, EYES, EARS, NOSE, AND THROAT: Normocephalic, atraumatic. NECK: Supple. HEART: Showed normal first and second heart sounds, no gallop or murmur. CHEST: Clear to auscultation, no crepitation or rhonchi. ABDOMEN: Distended. UROLOGIC: She has bilateral nephrostomy tubes in place. NEUROLOGIC: She is awake, alert, responding appropriately. Cranial nerves intact. She moves extremities without difficulty. She ambulates without assistance or assistive devices. LABORATORY DATA: Her lab work on admission showed a white cell count 6300, hemoglobin 10, hematocrit 32, MCV 96 and platelet count 269,000. Her chemistry showed a serum sodium 140, potassium 3.8, chloride 105, bicarbonate 29, anion gap of 6, BUN 30, creatinine 3, estimated GFR was 15 mL per minute. Her glucose was 77, calcium was 8.7. Total bilirubin, AST, ALT were normal. Alkaline phosphatase slightly elevated at 144. Her CK was 23. Total protein 6.3, albumin 2.9. Urinalysis showed the urine was yellow, cloudy with a pH of 5.5, specific gravity of 1.030. There is large amount of protein, negative for glucose, small amount of ketones, large amount of blood, negative for nitrite with small amount of leukocyte esterase, too numerous to count rbc's, too numerous to count wbc's and many bacteria. Her chest x-ray showed no acute cardiopulmonary process and CT scan of the head and cervical spine showed no acute intracranial abnormalities, moderate sequela of chronic microvascular ischemic disease and no acute fracture or subluxation of cervical spine with multilevel cervical spondylosis. We did repeat her lab work and it did show that her BUN is down to 28, creatinine down to 2.4. Her urine culture is still pending at the time of this dictation. ASSESSMENT AND PLAN: The patient is hemodynamically stable, afebrile and wanted to go home; therefore, she will be discharged home to continue on oral antibiotic. We will obviously monitor her urine culture and will contact her if the bacteria is not susceptible to levofloxacin. FINAL DISCHARGE DIAGNOSES: Vasovagal syncope; acute on chronic kidney injury, improving. She has bilateral hydronephrosis, status post bilateral percutaneous nephrostomy tube placement. Other medical problems include hypertension. JAKY DR: Irma TID: [id number]
== END 2021-01-27 15:00 | disposition home health service (06) | DRG 312 ==
LOC: ER 19:26 → 1 SOUTH 22:44
PROVIDERS: ADMIT Internal Medicine; ATTEND Internal Medicine
DX: R55 Syncope and collapse (principal); N17.9 Acute kidney failure, unspecified; Z96.643 Presence of artificial hip joint, bilateral; Z96.612 Presence of left artificial shoulder joint; Z96.611 Presence of right artificial shoulder joint; M15.9 Polyosteoarthritis, unspecified; K59.00 Constipation, unspecified; D64.9 Anemia, unspecified; H90.5 Unspecified sensorineural hearing loss; I10 Essential (primary) hypertension; Z92.3 Personal history of irradiation; Z90.710 Acquired absence of both cervix and uterus; Z85.42 Personal history of malignant neoplasm of other parts of uterus; Z82.49 Family history of ischemic heart disease and other diseases of the circulatory system; Z81.3 Family history of other psychoactive substance abuse and dependence; Z88.1 Allergy status to other antibiotic agents; Z87.440 Personal history of urinary (tract) infections
CPT/HCPCS: 36415; 70450; 71045; 72125; 80053; 81001; 82550; 82565; 84484; 84520; 85025; 87086; 93005; 96361; 96365; J0696; J2405; 99285-25; J7030

== ENCOUNTER → 2021-02-13 | Outpatient (CLI) | payer MEDICARE, BC, OTHER ==
[2021-01-27 12:59] VITALS: BP 146/68
[2021-02-13 12:48] LABS: ALBUMIN 3.5 g/dL (3.4-5.0); CALCIUM 9.3 mg/dL (8.5-10.1); CREATININE 1.8 mg/dL (0.6-1.0); GFR 27.4; PHOSPHORUS 3.4 mg/dL (2.6-4.7); POTASSIUM 3.8 mmol/L (3.5-5.1)
[2021-02-13 13:32] LABS: BACTERIA,URINE 0 /HPF (0-FEW); BILIRUBIN,URINE NEG (NEG); CLARITY,URINE CLOUDY; COLOR,URINE YELLOW; GLUCOSE,URINE NEG (NEG); UROBILINOGEN,URINE 0.2 mg/dL (0.2 mg/dL); WBC,URINE 20-40 /HPF (0-4); YEAST,URINE PRESENT /HPF
[2021-02-13 13:33] LABS: NITRITE,URINE NEG (NEG)
[2021-02-14 07:14] LABS: CALCIUM PTH 9.6 mg/dL (8.7-10.3); CREATININE PTH 1.63 mg/dL (0.57-1.00); PTH INTACT 90 pg/mL (15-65)
[2021-02-14 19:14] LABS: CREATININE,RANDOM URINE 162.4 mg/dL (Not Establ.)
== END ==
LOC: LAB 11:17
PROVIDERS: ATTEND Internal Medicine Nephrology
DX: C55 Malignant neoplasm of uterus, part unspecified (principal); N18.4 Chronic kidney disease, stage 4 (severe); N13.30 Unspecified hydronephrosis
CPT/HCPCS: 36415; 80069; 81001; 82570; 83970; 84156; 87086; 87106

== ENCOUNTER 2021-07-10 05:26 | Emergency (ER) | payer MEDICARE, BC, OTHER ==
[~2021-07-10] VITALS: Ht 152.4 cm; Wt 80.8 kg
[2021-07-10] MEDS ORDERED: ONDANSETRON PF 4 MG/2 ML VIAL. IVP ONE (06:15)
[2021-07-10] MEDS ORDERED: MORPHINE SULFATE 4 MG/ML DISP.SYRIN. IV ONE (06:15)
--- NOTE | 2021-07-10 06:15 | PHYS DOC ---
Past History Past Medical History: Arthritis, UTI Additional Past Medical Histor: gastroparesis Past Surgical History: Appendectomy, Other Additional Past Surgical Histo: bilateral artificial shoulders and hips Alcohol Use: Rarely General Adult EDM: Chief Complaint: ABDOMINAL PAIN HPI: HPI: 76-year-old female presents with concern for dislodged nephrostomy tube. The patient had bilateral nephrostomy tubes placed at another hospital 3 days ago. She has a complex cancer history leading to this procedure. Patient believes that she may have snagged the right tube on something yesterday. She does not currently have any filling into the bag and she always has drainage. Since the decreased output on the right started, she has been developing right-sided pain. She is concerned that urine may be leaking into her abdomen. She denies fever or chills. Review of Systems: Review of Systems: Constitutional: Denies fever or chills Eyes: Denies change in visual acuity HENT: Denies nasal congestion or sore throat Respiratory: Denies cough or shortness of breath Cardiovascular: Denies chest pain or edema GI: Right sided abdominal pain. Denies nausea, vomiting, bloody stools or diarrhea : Bilateral nephrostomy tubes, right not draining. Musculoskeletal: Denies back pain or joint pain Integument: Denies rash Neurologic: Denies headache, focal weakness or sensory changes Endocrine: Denies polyuria or polydipsia Lymphatic: Denies swollen glands Psychiatric: Denies depression or anxiety Current Medications: Current Meds: Current Medications Medications (Trade) Dose Ordered Sig/Drea Start Time Stop Time Status Last Admin Dose Admin Morphine Sulfate (Morphine 4mg Syringe) 4 mg 1X ONCE 07/10/21 06:15 07/10/21 06:16 Ondansetron HCl (Zofran) 4 mg 1X ONCE 07/10/21 06:15 07/10/21 06:16 Allergies: Allergies: Allergies Uncoded Allergies Type Severity Reaction Last Updated Verified cestomycin Allergy Unknown 01/03/21 Physical Exam: PE: Constitutional: Well developed, well nourished, obese, no acute distress, non- toxic appearance. [] HENT: Normocephalic, atraumatic, bilateral external ears normal, oropharynx moist, no oral exudates, nose normal. [] Eyes: PERRLA, EOMI, conjunctiva normal, no discharge. [] Neck: Normal range of motion, no tenderness, supple, no stridor. [] Cardiovascular: Heart rate 66, regular rhythm, no murmur [] Lungs & Thorax: Bilateral breath sounds clear to auscultation [] Abdomen: Bowel sounds normal, soft, no tenderness, no masses, no pulsatile masses. [] Skin: Warm, dry, no erythema, no rash. [] Back: Bilateral nephrostomy tubes, right tube appears to have suture outside of Tegaderm. [] Extremities: No tenderness, no cyanosis, no clubbing, ROM intact, no edema. [] Neurologic: Alert and oriented X 3, normal motor function, normal sensory function, no focal deficits noted. [] Psychologic: Affect normal, judgement normal, mood normal. [] Current Patient Data: Vital Signs: Vital Signs Date Time Temp Pulse Resp B/P (MAP) Pulse Ox O2 Delivery O2 Flow Rate FiO2 07/10/21 05:37 98.0 68 22 125/62 (83) 99 Room Air EKG: EKG: Sinus rhythm, rate 66, normal axis, no ST elevation or depression, prolonged QT. [] Radiology/Procedures: Radiology/Procedures: [] Impressions: PQRS Compliance Statement: One or more of the following individualized dose reduction techniques were utilized for this examination: 1. Automated exposure control 2. Adjustment of the mA and/or kV according to patient size 3. Use of iterative reconstruction technique CT abdomen/pelvis without contrast 07/10/2021 6:14 AM INDICATION: Nephrostomy tube dislodged. History of uterine cancer 12 years ago with radiation. COMPARISON: CT abdomen/pelvis 01/03/2021 TECHNIQUE: Multiple axial CT images of the abdomen and pelvis were obtained without intravenous contrast. Coronal and sagittal reformats are provided. FINDINGS: Lung bases are clear. Heart size is within normal limits. Evaluation of the solid abdominal viscera is limited by lack of intravenous contrast. Stab le hypoattenuating lesion within the lateral segment left hepatic lobe measuring 0.8 cm (series 2, image 32). Spleen, adrenal glands and gallbladder are normal in appearance. Mild to moderate fatty atrophy of the pancreas. The abdominal aorta is normal in course and caliber. There are no pathologically enlarged lymph nodes in the abdomen and pelvis. There is no abdominal free flui d. There is no free intraperitoneal air. Coil mass is identified within the pelvis bilaterally bilateral total hip arthroplasty limits evaluation of the pelvis secondary to streak artifact. There is mild soft tissue thickening along the right lateral margin of the rectosigmoid junction along the colonic anastomosis measuring 4.7 x 2.7 cm, previously measuring 3.4 x 2.6 cm (series 2, image 201). This finding is identified within the site of previously seen mass on prior examination from 11/17/2019. Residual tumor remains a differential consideration. Right-sided nephrostomy tube is not visualized. Left-sided nephrostomy tube is in appropriate position. There is moderate right renal cortical atrophy and mild left renal cortical atrophy. There is severe right hydroureteronephrosis. Bladder is not well visualized. Diastases of the ventral abdominal musculature. No suspicious osseous abnormality is identified. IMPRESSION: 1. Removal of right-sided nephrostomy tube with interval development of moderate right hydroureteronephrosis. 2. Left-sided nephrostomy tube is in appropriate position. 3. Soft tissue attenuation adjacent to the rectosigmoid anastomosis favors residual disease. This finding is marginally increased since 01/03/2021 and improved since 11/17/2019. Electronically signed by: Pily Raphael MD (07/10/2021 7:05 AM) [facility] DICTATED AND SIGNED BY: PILY RAPHAEL MD DATE: 07/10/21657 CC: TODD SAUNDERS DO; ARABELLA RAZO ~MTH0 0 Heart Score: C/O Chest Pain: N/A Risk Factors: Risk Factors: DM, Current or recent (<one month) smoker, HTN, HLP, family history of CAD, obesity. Risk Scores: Score 0 - 3: 2.5% MACE over next 6 weeks - Discharge Home Score 4 - 6: 20.3% MACE over next 6 weeks - Admit for Clinical Observation Score 7 - 10: 72.7% MACE over next 6 weeks - Early Invasive Strategies Course & Med Decision Making: Course & Med Decision Making Pertinent Labs and Imaging studies reviewed. (See chart for details) The patient's labs are significant for hemoglobin of 8.9. This is about a gram lower than her baseline. She also has an elevated creatinine of 2.4 which is similar to previous in the chart. The patient CT scan does show complete dislodgment of the right nephrostomy tube. Left tube is in place. We have contacted [facility] to discuss the appropriate place to transfer the patient. That is pending at this time. The patient has been accepted at [facility]. They do not have a bed at this time. The patient will remain in the emergency room until transfer. [] [place] Disclaimer: Dragon Disclaimer: This electronic medical record was generated, in whole or in part, using a voice recognition dictation system. Departure Departure: Impression: Primary Impression: Nephrostomy tube displaced Disposition: 02 SHORT TERM [facility]OSPITAL Condition: STABLE Referrals: ARABELLA RAZO (PCP) TODD SAUNDERS DO Jul 10, 2021 06:15
--- NOTE | 2021-07-10 06:39 | EKG ---
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
[2021-07-10 06:41] LABS: BASO # 0.1 x10^3/uL (0.0-0.2); BASO % 1 % (0-3); EOS # 0.3 x10^3/uL (0.0-0.7); EOS % 4 % (0-3); HEMATOCRIT 27.1 % (36.0-47.0); HEMOGLOBIN 8.9 g/dL (12.0-15.5); LYMPH # 0.6 x10^3/uL (1.0-4.8); LYMPH % 8 % (24-48); MEAN CORPUSCULAR HEMOGLOBIN 32 pg (25-35); MEAN CORPUSCULAR HGB CONC 33 g/dL (31-37); MEAN CORPUSCULAR VOLUME 98 fL (79-100); MONO # 0.8 x10^3/uL (0.0-1.1); MONO % 11 % (0-9); NEUT # 5.5 x10^3uL (1.8-7.7); NEUT % 76 % (31-73); PLATELET COUNT 295 x10^3/uL (140-400); RED BLOOD COUNT 2.76 x10^6/uL (3.50-5.40); RED CELL DISTRIBUTION WIDTH 15.5 % (11.5-14.5); WHITE BLOOD COUNT 7.2 x10^3/uL (4.0-11.0)
[2021-07-10] MEDS ORDERED: HYDROmorphone PF 1 MG/ML DISP.SYRIN ONE (06:50)
[2021-07-10 07:00] LABS: CALCIUM 8.2 mg/dL (8.5-10.1); CREATININE 2.4 mg/dL (0.6-1.0); GFR 19.6; POTASSIUM 3.4 mmol/L (3.5-5.1)
[2021-07-10] MEDS ORDERED: HYDROmorphone PF 1 MG/ML DISP.SYRIN IVP ONE ×5 (07:00→20:15)
[2021-07-10 07:03] LABS: ALBUMIN 2.6 g/dL (3.4-5.0); ALBUMIN/GLOBULIN RATIO 0.7 (1.0-1.7); TOTAL BILIRUBIN 0.2 mg/dL (0.2-1.0); TOTAL PROTEIN 6.3 g/dL (6.4-8.2)
--- NOTE | 2021-07-10 07:07 | RAD ---
PQRS Compliance Statement: One or more of the following individualized dose reduction techniques were utilized for this examinat ion: 1. Automated exposure control 2. Adjustment of the mA and/or kV according to patient size 3. Use of iterative reconstruction technique CT abdomen/pelvis without contrast 07/10/2021 6:14 AM INDICATION: Nephrostomy tube dislodged. History of uterine cancer 12 years ago with radiation. COMPARISON: CT abdomen/pelvis 01/03/2021 TECHNIQUE: Multiple axial CT images of the abdomen and pelvis were obtained without intravenous contr ast. Coronal and sagittal reformats are provided. FINDINGS: Lung bases are clear. Heart size is within normal limits. Evaluation of the solid abdominal viscera is limited by lack of intravenous contrast. Stable hypoattenuating lesion within the lateral segment left hepatic lobe measuring 0.8 cm (series 2, image 32). Spleen, adrenal glands and gallblad btete are normal in appearance. Mild to moderate fatty atrophy of the pancreas. The abdominal aorta is normal in course and caliber. There are no pathologically enlarged lymph nodes in the abdomen and pelvis. There is no abdominal free fluid. There is no free intraperitoneal air. Coil mass is identified within the pelvis bilaterally bilateral total hip arthroplasty limits evaluat ion of the pelvis secondary to streak artifact. There is mild soft tissue thickening along the right lateral margin of the rectosigmoid junction along the colonic anastomosis measuring 4.7 x 2.7 cm, pre viously measuring 3.4 x 2.6 cm (series 2, image 201). This finding is identified within the site of p reviously seen mass on prior examination from 11/17/2019. Residual tumor remains a differential consid eration. Right-sided nephrostomy tube is not visualized. Left-sided nephrostomy tube is in appropriate positio n. There is moderate right renal cortical atrophy and mild left renal cortical atrophy. There is rita re right hydroureteronephrosis. Bladder is not well visualized. Diastases of the ventral abdominal mu sculature. No suspicious osseous abnormality is identified. IMPRESSION: 1. Removal of right-sided nephrostomy tube with interval development of moderate right hydroureterone phrosis. 2. Left-sided nephrostomy tube is in appropriate position. 3. Soft tissue attenuation adjacent to the rectosigmoid anastomosis favors residual disease. This fin ding is marginally increased since 01/03/2021 and improved since 11/17/2019. Electronically signed by: Lucie Raphael MD (07/10/2021 7:05 AM) [facility]
[2021-07-10 07:28] LABS: BACTERIA,URINE MANY /HPF (0-FEW); BILIRUBIN,URINE NEG (NEG); CLARITY,URINE TURBID; COLOR,URINE YELLOW; GLUCOSE,URINE NEG (NEG); NITRITE,URINE POS (NEG); SQUAMOUS EPITHELIAL CELL,UR FEW /LPF; UROBILINOGEN,URINE 0.2 mg/dL (0.2 mg/dL); WBC,URINE >40 /HPF (0-4)
[2021-07-10] MEDS ORDERED: cefTRIAXone SODIUM 1 GM VIAL ONE (19:03)
[2021-07-10] MEDS ORDERED: IV NORMAL SALINE 50ML 50 ML ONE (19:03)
[2021-07-10 19:11] VITALS: BP 157/71
== END 2021-07-10 21:04 | disposition short-term general hospital (02) ==
LOC: ER 05:26
DX: T83.022A Displacement of nephrostomy catheter, initial encounter (principal); M19.90 Unspecified osteoarthritis, unspecified site; Z20.822 Contact with and (suspected) exposure to COVID-19; Z87.440 Personal history of urinary (tract) infections; Z88.1 Allergy status to other antibiotic agents
CPT/HCPCS: 36415; 74176; 80053; 81001; 85025; 87086; 87426; 93005; 96365; 96375; 96376; 99285; C9803; J0696; J1170; J2270; J2405; U0003

== ENCOUNTER 2021-09-14 10:55 | Emergency (ER) | payer MEDICARE, BC, OTHER ==
[~2021-09-14] VITALS: Ht 152.4 cm; Wt 80.8 kg
--- NOTE | 2021-09-14 11:12 | PHYS DOC ---
Past History Past Medical History: Arthritis, Cancer, UTI Additional Past Medical Histor: gastroparesis Past Surgical History: Appendectomy, Other Additional Past Surgical Histo: bilateral artificial shoulders and hips Alcohol Use: Rarely Adult General HPI HPI Patient is a 76-year-old female presenting via POV for nausea and vomit. Reports onset was yesterday. States she has been at baseline health but reports 48 hours ago snagging her right nephrostomy tube on doorway where it subsequently became dislodged. States she has had 0 urine output into her right sided bag and as a result, started developing nausea and has had subsequent episodes of nonbloody nonbilious emesis. She has been afebrile, no recent medication changes, travel or known sick contacts. Admits she is fully vaccinated against COVID-19. Reports she contacted her outpatient specialist physicians who manage nephrostomy tubes which were placed several months prior due to complicated history of cancer. States she thinks primary source of cancer with uterus but has spread to multiple sites within her abdomen. Prior to arrival, she spoke to her outpatient specialists at [facility] who advised her to come to the ER for emergent evaluation and eventual transfer to their facility for admission Review of Systems Review of Systems Fourteen body systems of review of systems have been reviewed. See HPI for pertinent positives and negative responses, other stout all other systems are negative, non-pertinent or non-contributory Allergies Allergies Allergies Uncoded Allergies Type Severity Reaction Last Updated Verified cestomycin Allergy Unknown 01/03/21 Physical Exam Physical Exam Constitutional: Well developed, well nourished, no acute distress, non-toxic appearance. HENT: Normocephalic, atraumatic, bilateral external ears normal, oropharynx moist, no oral exudates, nose normal. Eyes: PERRLA, EOMI, conjunctiva normal, no discharge. Neck: Normal range of motion, no tenderness, supple, no stridor. Cardiovascular: Heart rate regular, sinus rhythm, no murmurs rubs or gallops. Chest port present to left upper outer chest and well-appearing Lungs & Thorax: Bilateral breath sounds clear to auscultation Abdomen: Bowel sounds normal, soft, suprapubic tenderness to palpation without guarding or rebound, no masses, no pulsatile masses. Nonsurgical abdomen, no peritoneal signs. Skin: Warm, dry, no erythema, no rash. Back: No tenderness, no CVA tenderness. Patient does have nephrostomy tube incision sites present to bilateral lower back areas, tube in adequate position with well appearing urine filling bag, right nephrostomy tube incision site well-appearing with tube present but reportedly dislodged, no urine in bag Extremities: No tenderness, no cyanosis, no clubbing, ROM intact, no edema. Neurologic: Alert and oriented X 3, grossly normal motor & sensory function, no focal deficits noted. Psychologic: Anxious affect and mood Current Patient Data Vital Signs Vital Signs Date Time Temp Pulse Resp B/P (MAP) Pulse Ox O2 Delivery O2 Flow Rate FiO2 09/14/21 11:10 98.6 80 16 147/74 (72) 97 Room Air Vital Signs Date Time Temp Pulse Resp B/P (MAP) Pulse Ox O2 Delivery O2 Flow Rate FiO2 09/14/21 11:10 98.6 80 16 147/74 (72) 97 Room Air Lab Results Laboratory Tests Test 09/14/21 11:38 09/14/21 18:52 White Blood Count 14.8 x10^3/uL Red Blood Count 3.02 x10^6/uL Hemoglobin 9.8 g/dL Hematocrit 29.9 % Mean Corpuscular Volume 99 fL Mean Corpuscular Hemoglobin 32 pg Mean Corpuscular Hemoglobin Concent 33 g/dL Red Cell Distribution Width 14.8 % Platelet Count 291 x10^3/uL Neutrophils (%) (Auto) 91 % Lymphocytes (%) (Auto) 2 % Monocytes (%) (Auto) 6 % Eosinophils (%) (Auto) 0 % Basophils (%) (Auto) 1 % Neutrophils # (Auto) 13.5 x10^3uL Lymphocytes # (Auto) 0.2 x10^3/uL Monocytes # (Auto) 1.0 x10^3/uL Eosinophils # (Auto) 0.0 x10^3/uL Basophils # (Auto) 0.1 x10^3/uL Sodium Level 135 mmol/L Potassium Level 3.8 mmol/L Chloride Level 102 mmol/L Carbon Dioxide Level 23 mmol/L Anion Gap 10 Blood Urea Nitrogen 21 mg/dL Creatinine 2.0 mg/dL Estimated GFR (Cockcroft-Gault) 24.2 BUN/Creatinine Ratio 11 Glucose Level 115 mg/dL Lactic Acid Level 0.7 mmol/L Calcium Level 8.9 mg/dL Total Bilirubin 0.4 mg/dL Aspartate Amino Transf (AST/SGOT) 13 U/L Alanine Aminotransferase (ALT/SGPT) 11 U/L Alkaline Phosphatase 72 U/L Creatine Kinase 29 U/L Troponin I High Sensitivity 9 ng/L Total Protein 6.9 g/dL Albumin 2.9 g/dL Albumin/Globulin Ratio 0.7 Lipase 48 U/L SARS-CoV-2 Antigen (Rapid) Negative Urine Collection Type Unknown Urine Color Yellow Urine Clarity Hazy Urine pH 7.0 Urine Specific [place] 1.020 Urine Protein 30 mg/dl Urine Glucose (UA) Neg mg/dL Urine Ketones (Stick) Trace mg/dL Urine Blood Trace Urine Nitrite Pos Urine Bilirubin Neg Urine Urobilinogen Dipstick 0.2 mg/dL Urine Leukocyte Esterase Mod Urine RBC 1-2 /HPF Urine WBC >40 /HPF Urine Squamous Epithelial Cells Occ /LPF Urine Bacteria Mod /HPF Current Medications Medications (Trade) Dose Ordered Sig/Drea Route PRN Reason Start Time Stop Time Status Last Admin Dose Admin Ondansetron HCl (Zofran) 4 mg 1X ONCE IVP 09/14/21 11:30 09/14/21 11:33 DC 09/14/21 11:30 Fentanyl Citrate (Fentanyl 2ml Vial) 50 mcg 1X ONCE IVP 09/14/21 12:00 09/14/21 12:01 DC 09/14/21 11:58 Piperacillin Sod/ Tazobactam Sod 3.375 gm/Sodium Chloride 50 ml @ 100 mls/hr 1X ONCE IV 09/14/21 12:45 09/14/21 13:15 DC 09/14/21 12:45 Sodium Chloride 50 ml @ As Directed STK-MED ONCE .ROUTE 09/14/21 12:47 09/14/21 12:47 DC Piperacillin Sod/ Tazobactam Sod (Zosyn) 3.375 gm STK-MED ONCE IV 09/14/21 12:47 09/14/21 12:47 DC Sodium Chloride 1,000 ml @ 75 mls/hr 1X ONCE IV 09/14/21 13:45 09/14/21 19:42 DC 09/14/21 13:45 Ondansetron HCl (Zofran) 4 mg STK-MED ONCE .ROUTE 09/14/21 16:14 09/14/21 16:14 DC Fentanyl Citrate (Fentanyl 2ml Vial) 50 mcg 1X ONCE IVP 09/14/21 17:45 09/14/21 17:46 DC 09/14/21 17:36 Ondansetron HCl (Zofran) 4 mg 1X ONCE IVP 09/14/21 19:00 09/14/21 19:03 DC 09/14/21 18:57 Morphine Sulfate (Morphine 4mg Syringe) 4 mg 1X ONCE IV 09/14/21 19:00 09/14/21 19:03 DC 09/14/21 18:57 Morphine Sulfate (Morphine 2mg Syringe) 2 mg 1X ONCE IV 09/14/21 19:00 09/14/21 19:03 DC 09/14/21 18:57 EKG EKG EKG ordered and interpreted by myself at 1123 hrs. is sinus rhythm at 80 bpm, unremarkable intervals, no axis deviation, no acute ischemic findings, no STEMI Radiology/Procedures Radiology/Procedures Single AP view of the chest. Comparison: 01/26/2021. Indication: Nausea vomiting with fall Findings: Left subclavian Port-A-Cath is unchanged. Bilateral humeral arthroplasties are reidentified. Pigtail drain is reidentified in the left kidney. The heart is en larged but stable. There is no pneumothorax or effusion. No air space or interstitial disease. Impression: 1. No acute cardiopulmonary process. Electronically signed by: Stanley Ayoub MD (09/14/2021 11:40 AM) [id number] ////////////////////////////////////////////////// CT of the abdomen and pelvis without contrast. 09/14/2021 11:16 AM Indication: Nausea, vomiting. Dislodged right nephrostomy tube Comparison Study:CT of the abdomen and pelvis without contrast July 10, 2021 Technique: Multidetector CT imaging of the abdomen pelvis is obtained without administration of contrast. Findings: No acute abnormalities involving the lung bases are identified. The right nephrostomy tube has been retracted centimeter for/removed and can be seen in length on top of patient's skin in the right flank. There is moderate to severe right hydronephrosis. The right kidney is atrophic in appearance. The right ureter is dilated extending to a coil pack in the pelvis. There is a left-sided nephrostomy tube which seems to be in expected position. There is no left-sided hydronephrosis. The left ureter also appears to extend into the coil pack in the pelvis. Evaluation of the pelvis is severely limited secondary to extensive artifact from bilateral total hip arthroplasties. The bladder is not visualized/evaluated. The rectum and distal large bowel are not well seen. Possible rectal wall thickening noted. No acute normalities of the unenhanced liver and gallbladder are seen. Spleen, adrenal glands, pancreas demonstrate no acute normality. No bowel obstruction is identified. No definitive free fluid or free air seen in the abdomen or pelvis. Diastases of the inferior abdominal wall in the midline is similar. Degenerative changes of the lumbar spine are seen without evidence of acute osseous abnormality. IMPRESSION: 1.The right nephrostomy tube is been retracted/removed and can be seen coiled on the patient's skin in the right flank. There is moderate to severe right hydronephrosis. There is a left nephrostomy tube in the expected position. Both ureters appear to have been occluded with coils. Correlate with urologic history. 2. Possible rectal wall thickening. Correlate with is evidence of proctitis. Heart Score C/O Chest Pain: No Risk Factors: Risk Factors: DM, Current or recent (<one month) smoker, HTN, HLP, family history of CAD, obesity. Risk Scores: Risk Factors: DM, Current or recent (<one month) smoker, HTN, HLP, family his tory of CAD, obesity. Course & Med Decision Making Course & Med Decision Making ABCs unremarkable HPI physical exam and comprehensive ER work-up consistent with recently dislodged right-sided nephrostomy tube with resultant right-sided hydronephrosis and DANE Patient symptoms resolved with IV Zofran and fentanyl. I disclosed entirety of ER findings with patient with good understanding. Joint decision made to start IV Zosyn in setting of elevated white blood cell count with nausea and vomit despite any urinary symptoms in a high risk individual Given complicated patient case and the fact that we do not have urology and/or nephrology at our facility, patient's case reviewed with [facility] access transfer team. Patient accepted under the care of Dr. Stinson for transfer to [place] I updated patient and son at bedside on discussions and need for transfer, they were amenable. All questions and concerns addressed Efforts were made to transport patient by [facility], they deferred given road conditions. [facility] service contacted and they again deferred due to road conditions Patient still pending hospital transfer at time of my shift ending. Comprehensive signout given to Dr. Moore. Please defer to his documentation if any further/noteworthy events occur prior to hospital transfer to [place] for admission Dragon Disclaimer Dragon Disclaimer This electronic medical record was generated, in whole or in part, using a voice recognition dictation system. Departure Departure: Impression: Primary Impression: Nephrostomy tube displaced Additional Impression: DANE (acute kidney injury) Disposition: 02 [facility]ORT TERM [facility]OSP[facility] ([place]) Admitting Physician: Other (dr stinson) Condition: STABLE Referrals: ARABELLA RAZO (PCP) Problem Qualifiers JOJO GARSIA DO Sep 14, 2021 11:12
[2021-09-14] MEDS ORDERED: ONDANSETRON PF 4 MG/2 ML VIAL. IVP ONE ×2 (11:30→19:00)
--- NOTE | 2021-09-14 11:43 | RAD ---
Single AP view of the chest. Comparison: 01/26/2021. Indication: Nausea vomiting with fall Findings: Left subclavian Port-A-Cath is unchanged. Bilateral humeral arthroplasties are reidentified. Pigtail drain is reidentified in the left kidney. The heart is enlarged but stable. There is no pneumothorax or effusion. No air space or interstitial disease. Impression: 1. No acute cardiopulmonary process. Electronically signed by: Stanley Ayoub MD (09/14/2021 11:40 AM) [id number]
[2021-09-14 12:01] LABS: BASO # 0.1 x10^3/uL (0.0-0.2); BASO % 1 % (0-3); EOS % 0 % (0-3); HEMATOCRIT 29.9 % (36.0-47.0); HEMOGLOBIN 9.8 g/dL (12.0-15.5); LYMPH # 0.2 x10^3/uL (1.0-4.8); LYMPH % 2 % (24-48); MEAN CORPUSCULAR HEMOGLOBIN 32 pg (25-35); MEAN CORPUSCULAR HGB CONC 33 g/dL (31-37); MEAN CORPUSCULAR VOLUME 99 fL (79-100); MONO % 6 % (0-9); NEUT # 13.5 x10^3uL (1.8-7.7); NEUT % 91 % (31-73); PLATELET COUNT 291 x10^3/uL (140-400); RED BLOOD COUNT 3.02 x10^6/uL (3.50-5.40); RED CELL DISTRIBUTION WIDTH 14.8 % (11.5-14.5); WHITE BLOOD COUNT 14.8 x10^3/uL (4.0-11.0)
--- NOTE | 2021-09-14 12:04 | RAD ---
CT of the abdomen and pelvis without contrast. 09/14/2021 11:16 AM Indication: Nausea, vomiting. Dislodged right nephrostomy tube Comparison Study:CT of the abdomen and pelvis without contrast July 10, 2021 Technique: Multidetector CT imaging of the abdomen pelvis is obtained without administration of contr ast. Findings: No acute abnormalities involving the lung bases are identified. The right nephrostomy tube has been retracted centimeter for/removed and can be seen in length on top of patient's skin in the right flank. There is moderate to severe right hydronephrosis. The right ki dney is atrophic in appearance. The right ureter is dilated extending to a coil pack in the pelvis. There is a left-sided nephrostomy tube which seems to be in expected position. There is no left-sided hydronephrosis. The left ureter also appears to extend into the coil pack in the pelvis. Evaluation of the pelvis is severely limited secondary to extensive artifact from bilateral total hip arthroplasties. The bladder is not visualized/evaluated. The rectum and distal large bowel are not well seen. Possible rectal wall thickening noted. No acute normalities of the unenhanced liver and gallbladder are seen. Spleen, adrenal glands, pancreas demons trate no acute normality. No bowel obstruction is identified. No definitive free fluid or free air se en in the abdomen or pelvis. Diastases of the inferior abdominal wall in the midline is similar. Dege nerative changes of the lumbar spine are seen without evidence of acute osseous abnormality. IMPRESSION: 1.The right nephrostomy tube is been retracted/removed and can be seen coiled on the patient's skin i n the right flank. There is moderate to severe right hydronephrosis. There is a left nephrostomy tube in the expected position. Both ureters appear to have been occluded with coils. Correlate with urolo gic history. 2. Possible rectal wall thickening. Correlate with is evidence of proctitis. CT DOSING PQRS STATEMENT: One or more of the following individualized dose reduction techniques were utilized for this examinat ion: 1. Automated exposure control 2. Adjustment of the mA and/or kV according to patient size 3. Use of iterative reconstruction technique Electronically signed by: Francisco Spivey MD (09/14/2021 12:02 PM) [id number]
[2021-09-14 12:17] LABS: CALCIUM 8.9 mg/dL (8.5-10.1); GFR 24.2; POTASSIUM 3.8 mmol/L (3.5-5.1)
[2021-09-14 12:25] LABS: ALBUMIN 2.9 g/dL (3.4-5.0); ALBUMIN/GLOBULIN RATIO 0.7 (1.0-1.7); TOTAL BILIRUBIN 0.4 mg/dL (0.2-1.0); TOTAL PROTEIN 6.9 g/dL (6.4-8.2)
[2021-09-14] MEDS ORDERED: PIPERACILLIN/TAZOBACTAM 3.375 GM in IV NORMAL SALINE 50ML 50 ML IV ONE (12:45)
[2021-09-14] MEDS ORDERED: PIPERACILLIN/TAZOBACTAM 3.375 GM VIAL IV ONE (12:47)
[2021-09-14] MEDS ORDERED: IV NORMAL SALINE 50ML 50 ML ONE (12:47)
--- NOTE | 2021-09-14 13:44 | EKG ---
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
[2021-09-14] MEDS ORDERED: IV NORMAL SALINE 1,000ML 1,000 ML IV ONE (13:45)
[2021-09-14] MEDS ORDERED: ONDANSETRON PF 4 MG/2 ML VIAL. ONE (16:14)
[2021-09-14 19:00] VITALS: BP 161/58
[2021-09-14] MEDS ORDERED: MORPHINE SULFATE 2 MG/ML DISP.SYRIN. IV ONE (19:00)
[2021-09-14] MEDS ORDERED: MORPHINE SULFATE 4 MG/ML DISP.SYRIN. IV ONE (19:00)
[2021-09-14 19:18] LABS: CLARITY,URINE HAZY; COLOR,URINE YELLOW; GLUCOSE,URINE NEG (NEG); NITRITE,URINE POS (NEG); UROBILINOGEN,URINE 0.2 mg/dL (0.2 mg/dL)
[2021-09-14 19:19] LABS: BACTERIA,URINE MOD /HPF (0-FEW); SQUAMOUS EPITHELIAL CELL,UR OCC /LPF; WBC,URINE >40 /HPF (0-4)
== END 2021-09-14 19:42 | disposition short-term general hospital (02) ==
LOC: ER 10:55
DX: N17.9 Acute kidney failure, unspecified (principal); N99.522 Malfunction of incontinent external stoma of urinary tract; M19.90 Unspecified osteoarthritis, unspecified site; Z20.822 Contact with and (suspected) exposure to COVID-19; Z87.440 Personal history of urinary (tract) infections; Z85.9 Personal history of malignant neoplasm, unspecified
CPT/HCPCS: 71045; 74176; 80053; 81001; 82550; 83605; 83690; 84484; 85025; 87040; 87086; 87426; 93005; 96365; 96375; 96376; 99285; C9803; J2270; J2405; J2543; J3010; J7030; U0003

== ENCOUNTER 2021-11-03 16:59 | Emergency (ER) | payer MEDICARE, BC, OTHER ==
[~2021-11-03] VITALS: Ht 152.4 cm; Wt 76.0 kg
[2021-11-03] MEDS ORDERED: IV NORMAL SALINE 1,000ML 1,000 ML IV ONE (17:45)
[2021-11-03] MEDS ORDERED: ONDANSETRON PF 4 MG/2 ML VIAL. IVP ONE (17:45)
--- NOTE | 2021-11-03 17:50 | PHYS DOC ---
Past History Past Medical History: Arthritis, Cancer, UTI Additional Past Medical Histor: gastroparesis (TODD SAUNDERS DO) Past Surgical History: Appendectomy, Other Additional Past Surgical Histo: bilateral artificial shoulders and hips, bilateral nephrostomy tubes (TODD SAUNDERS DO) Alcohol Use: Rarely (TODD SAUNDERS DO) General Adult EDM: Chief Complaint: BLOOD IN URINE HPI: HPI: 76-year-old female presents emergency room with concern for nephrostomy tube obstruction. The patient has bilateral nephrostomy tubes. The left one has been working well but the right 1 has always been marginal. For at least the last 24 hours she believes it has had significantly decreased output. For the last 3 days the right side has had bloody output though it is now more serosanguineous at this point. There is also a thicker milky white substance in the tube and she thinks this may be obstructing it completely. Patient also has gastroparesis and has been having nausea and vomiting. She is still having bowel movements. Her nephrostomy tubes were placed at [facility] but the patient does not want to go back to that facility. This is part of the [facility] system. She does not have a varnish remover at this time. She got chemo and radiation at [facility]. She denies fever or chills. (TODD SAUNDERS DO) Review of Systems: Review of Systems: Constitutional: Denies fever or chills Eyes: Denies change in visual acuity HENT: Denies nasal congestion or sore throat Respiratory: Denies cough or shortness of breath Cardiovascular: Denies chest pain or edema GI: Nausea, vomiting : Bilateral nephrostomy tubes, right tube blocked Musculoskeletal: Denies back pain or joint pain Integument: Denies rash Neurologic: Denies headache, focal weakness or sensory changes Endocrine: Denies polyuria or polydipsia Lymphatic: Denies swollen glands Psychiatric: Denies depression or anxiety (TODD SAUNDERS DO) Current Medications: Current Meds: Current Medications Medications (Trade) Dose Ordered Sig/Drea Start Time Stop Time Status Last Admin Dose Admin Ondansetron HCl (Zofran) 4 mg 1X ONCE 11/03/21 17:45 11/03/21 17:46 UNV Sodium Chloride 1,000 ml @ 1,000 mls/hr 1X ONCE 11/03/21 17:45 11/03/21 18:44 UNV (TODD SAUNDERS DO) Allergies: Allergies: Allergies Uncoded Allergies Type Severity Reaction Last Updated Verified cestomycin Allergy Unknown 01/03/21 (TODD SAUNDERS DO) Physical Exam: PE: Constitutional: Well developed, well nourished, no acute distress, non-toxic appearance. [] HENT: Normocephalic, atraumatic, bilateral external ears normal, oropharynx moist, no oral exudates, nose normal. [] Eyes: PERRLA, EOMI, conjunctiva normal, no discharge. [] Neck: Normal range of motion, no tenderness, supple, no stridor. [] Cardiovascular: Heart rate regular rhythm, no murmur [] Lungs & Thorax: Bilateral breath sounds clear to auscultation [] Abdomen: Bowel sounds normal, soft, no tenderness, no masses, no pulsatile masses. [] Skin: Warm, dry, no erythema, no rash. [] Back: Bilateral nephrostomy tubes in place with no skin complications. [] Extremities: No tenderness, no cyanosis, no clubbing, ROM intact, no edema. [] Neurologic: Alert and oriented X 3, normal motor function, normal sensory function, no focal deficits noted. [] Psychologic: Affect normal, judgement normal, mood normal. : Left nephrostomy tube and bag with urine, hazy in color. Right nephrostomy tube with serosanguineous fluid in the bag and thick white fluid in the tube. [] (TODD SAUNDERS DO) Current Patient Data: Vital Signs: Vital Signs Date Time Temp Pulse Resp B/P (MAP) Pulse Ox O2 Delivery O2 Flow Rate FiO2 11/03/21 17:14 98.8 18 138/71 (93) 96 (TODD SAUNDERS DO) EKG: EKG: [] (TODD SAUNDERS DO) Radiology/Procedures: Radiology/Procedures: [] (TODD SAUNDERS DO) Radiology/Procedures: PATIENT: CHELO MONSALVE RACCOUNT: [id number] : 1945 LOCATION: ER AGE: 76 SEX: F EXAM STATUS: REG ER ORD. PHYSICIAN: BON OKEEFE MD REASON: nephrostomy tube malfunction PROCEDURE: CT ABDOMEN PELVIS WO CONTRAST CT ABDOMEN+PELVIS WO INDICATION: nephrostomy tube malfunction EXAM: Noncontrast CT of the abdomen and pelvis. Coronal and sagittal reformatted images were performed. PQRS compliance statement: One or more of the following individualized dose reduction techniques were utilized for this examination: 1. Automated exposure control 2. Adjustment of the mA and/or kV according to patient size 3. Use of iterative reconstruction technique COMPARISON: CT 09/14/2021. Percutaneous nephrostomy tube placement 09/15/2021. FINDINGS: No free air, free fluid, or fluid collection. Lower chest: The visualized lower lungs are aerated. No pleural or pericardial effusion. ABDOMEN: Liver: The noncontrast liver is homogeneous in attenuation. Gallbladder and biliary: Normal gallbladder without radiopaque stone. Normal caliber bile ducts. Spleen: Normal spleen. Pancreas: The noncontrast pancreas is homogeneous in attenuation without peripancreatic inflammatory changes. Adrenal glands: Normal adrenal glands. Kidneys and ureters: Bilateral percutaneous nephrostomy tubes in place. Right sided tube is coiled in an interpolar calyx, with metallic component outside the kidney. On nephrostomy placement imaging from 09/15/2021, the coiled tube and the metallic component were both within the renal pelvis. Left tube nephrostomy tube is in stable position, coiled in the left renal pelvis. Moderate to severe right hydronephrosis. No left hydronephrosis. Right renal atrophy. GI tract: The stomach is decompressed and poorly evaluated. Normal caliber small bowel and colon. Vascular structures: Normal caliber abdominal aorta. Mild aortoiliac atherosclerotic disease Lymph nodes: No lymphadenopathy in the abdomen or pelvis. PELVIS: Metallic artifact obscures the pelvic structures. SKELETAL STRUCTURES AND SOFT TISSUES: Severe degenerative changes of the spine. Diastases of the infraumbilical abdominal wall musculature with broad-based protrusion of abdominal contents. Bilateral total hip arthroplasties. IMPRESSION: 1. Right sided percutaneous nephrostomy tube appears to have been retracted when compared to imaging from nephrostomy placement dated 09/15/2021. The tube remains partially within the right renal collecting system, coiled within a calyx. Moderate to severe right hydronephrosis. 2. Left-sided percutaneous nephrostomy tube in stable position, coiled in the left renal pelvis. No left hydronephrosis. Electronically signed by: Rahul Joshi MD (11/03/2021 7:42 PM) [facility] DICTATED AND SIGNED BY: RAHUL JOSHI MD DATE: 11/03/211924 CC: ARABELLA RAZO; BON OKEEFE MD ~ (BON OKEEFE MD) Heart Score: C/O Chest Pain: N/A Risk Factors: Risk Factors: DM, Current or recent (<one month) smoker, HTN, HLP, family history of CAD, obesity. Risk Scores: Score 0 - 3: 2.5% MACE over next 6 weeks - Discharge Home Score 4 - 6: 20.3% MACE over next 6 weeks - Admit for Clinical Observation Score 7 - 10: 72.7% MACE over next 6 weeks - Early Invasive Strategies (TODD SAUNDERS DO) Course & Med Decision Making: Course & Med Decision Making Pertinent Labs and Imaging studies reviewed. (See chart for details) The patient's work-up is pending at this time. If we cannot get the nephrostomy tubes to flow freely, she may need to be transferred to [facility]. She may also need transfer based on her results. I will leave this up to my colleague, Dr. Okeefe. I am signing the patient out at 1800. [] (TODD SAUNDERS DO) Course & Med Decision Making This is a 76-year-old female who presented with hematuria. Past history complicated by bilateral nephrostomy tube placement approximately [address] demonstrates partial dislodgment of the right nephrostomy tube. Urinalysis is indicative of a urinary tract infection. Patient was given a liter of normal saline and a gram of ceftriaxone IV. Will transfer to [facility] for further treatment and management. I spoke with Dr. Coreas who has been kind enough to accept her, patient is in stable condition at this time. (BON OKEEFE MD) Dragon Disclaimer: Dragon Disclaimer: This electronic medical record was generated, in whole or in part, using a voice recognition dictation system. (TODD SAUNDERS DO) Departure Departure: Impression: Primary Impression: Hematuria Additional Impressions: Obstructed nephrostomy tube Nephrostomy tube displaced UTI (urinary tract infection) Disposition: [address] [place] [address] Condition: STABLE Referrals: ARABELLA RAZO (PCP) TODD SAUNDERS DO Nov 03, 2021 17:50 BON OKEEFE MD Nov 03, 2021 20:23
[2021-11-03 18:08] LABS: CALCIUM 8.7 mg/dL (8.5-10.1); CREATININE 2.3 mg/dL (0.6-1.0); GFR 20.6; POTASSIUM 3.1 mmol/L (3.5-5.1)
[2021-11-03 18:10] LABS: BASO # 0.1 x10^3/uL (0.0-0.2); BASO % 1 % (0-3); EOS # 0.2 x10^3/uL (0.0-0.7); EOS % 3 % (0-3); HEMATOCRIT 29.2 % (36.0-47.0); HEMOGLOBIN 9.6 g/dL (12.0-15.5); LYMPH # 0.7 x10^3/uL (1.0-4.8); LYMPH % 9 % (24-48); MEAN CORPUSCULAR HEMOGLOBIN 31 pg (25-35); MEAN CORPUSCULAR HGB CONC 33 g/dL (31-37); MEAN CORPUSCULAR VOLUME 94 fL (79-100); MONO # 0.8 x10^3/uL (0.0-1.1); MONO % 10 % (0-9); NEUT # 6.2 x10^3uL (1.8-7.7); NEUT % 78 % (31-73); PLATELET COUNT 402 x10^3/uL (140-400); RED CELL DISTRIBUTION WIDTH 14.6 % (11.5-14.5)
[2021-11-03 18:14] LABS: ALBUMIN 2.5 g/dL (3.4-5.0); ALBUMIN/GLOBULIN RATIO 0.6 (1.0-1.7); TOTAL BILIRUBIN 0.2 mg/dL (0.2-1.0); TOTAL PROTEIN 6.6 g/dL (6.4-8.2)
[2021-11-03 18:57] LABS: CLARITY,URINE TURBID; COLOR,URINE PINK
[2021-11-03 18:58] LABS: BACTERIA,URINE MOD /HPF (0-FEW); GLUCOSE,URINE NEG (NEG); NITRITE,URINE NEG (NEG); RBC,URINE TNTC /HPF (0-2); SQUAMOUS EPITHELIAL CELL,UR OCC /LPF; UROBILINOGEN,URINE 0.2 mg/dL (0.2 mg/dL); WBC,URINE TNTC /HPF (0-4)
--- NOTE | 2021-11-03 19:45 | RAD ---
CT ABDOMEN+PELVIS WO INDICATION: nephrostomy tube malfunction EXAM: Noncontrast CT of the abdomen and pelvis. Coronal and sagittal reformatted images were perform ed. PQRS compliance statement: One or more of the following individualized dose reduction techniques were utilized for this examinat ion: 1. Automated exposure control 2. Adjustment of the mA and/or kV according to patient size 3. Use of iterative reconstruction technique COMPARISON: CT 09/14/2021. Percutaneous nephrostomy tube placement 09/15/2021. FINDINGS: No free air, free fluid, or fluid collection. Lower chest: The visualized lower lungs are aerated. No pleural or pericardial effusion. ABDOMEN: Liver: The noncontrast liver is homogeneous in attenuation. Gallbladder and biliary: Normal gallbladder without radiopaque stone. Normal caliber bile ducts. Spleen: Normal spleen. Pancreas: The noncontrast pancreas is homogeneous in attenuation without peripancreatic inflammatory changes. Adrenal glands: Normal adrenal glands. Kidneys and ureters: Bilateral percutaneous nephrostomy tubes in place. Right sided tube is coiled in an interpolar calyx, with metallic component outside the kidney. On nephrostomy placement imaging fr om 09/15/2021, the coiled tube and the metallic component were both within the renal pelvis. Left tube nephrostomy tube is in stable position, coiled in the left renal pelvis. Moderate to severe right hy dronephrosis. No left hydronephrosis. Right renal atrophy. GI tract: The stomach is decompressed and poorly evaluated. Normal caliber small bowel and colon. Vascular structures: Normal caliber abdominal aorta. Mild aortoiliac atherosclerotic disease Lymph nodes: No lymphadenopathy in the abdomen or pelvis. PELVIS: Metallic artifact obscures the pelvic structures. SKELETAL STRUCTURES AND SOFT TISSUES: Severe degenerative changes of the spine. Diastases of the infr aumbilical abdominal wall musculature with broad-based protrusion of abdominal contents. Bilateral to lindsey hip arthroplasties. IMPRESSION: 1. Right sided percutaneous nephrostomy tube appears to have been retracted when compared to imaging from nephrostomy placement dated 09/15/2021. The tube remains partially within the right renal collect ing system, coiled within a calyx. Moderate to severe right hydronephrosis. 2. Left-sided percutaneous nephrostomy tube in stable position, coiled in the left renal pelvis. No l eft hydronephrosis. Electronically signed by: Pardeep Joshi MD (11/03/2021 7:42 PM) [facility]
[2021-11-03 21:16] VITALS: BP 133/55
== END 2021-11-03 21:55 ==
LOC: ER 16:59
DX: N99.522 Malfunction of incontinent external stoma of urinary tract (principal); R31.9 Hematuria, unspecified; N39.0 Urinary tract infection, site not specified; M19.90 Unspecified osteoarthritis, unspecified site; Z87.440 Personal history of urinary (tract) infections; Z88.1 Allergy status to other antibiotic agents
CPT/HCPCS: 36415; 74176; 80053; 81001; 83605; 85025; 87040; 87077; 87086; 87186; 96361; 96365; 96366; 96375; 99285; J0696; J2405; J7030